=== PATIENT | female | born 1950 | race Caucasian/White ===

== ENCOUNTER → 2023-12-11 10:00 | Outpatient (REF) | payer MEDICARE, BC, SELFPAY ==
[2023-12-11 12:03] LABS: ALT (SGPT) 28 U/L (0-35); AST (SGOT) 20 U/L (14-36); Albumin 3.7 g/dl (3.5-5.0); Alkaline Phosphatase 67 U/L (38-126); Blood Urea Nitrogen 15 mg/dl (7-17); Calcium 8.9 mg/dl (8.4-10.2); Carbon Dioxide 25 mmol/L (22-30); Chloride 104 mmol/L (98-107); Glucose 194 mg/dl (70-99); Sodium 140 mmol/L (135-145); Total Bilirubin 0.6 mg/dl (0.2-1.3); Total Protein 6.1 g/dl (6.3-8.2); eGFR > 60.00
[2023-12-11 15:35] LABS: Glycohemoglobin (HgbA1c) 6.9 % (4.0-5.6)
== END ==
LOC: RAD 10:00
PROVIDERS: Family Medicine; ATTENDING PHYSICIAN Surgery Vascular Surgery
DX: I70.0 Atherosclerosis of aorta (principal); K55.1 Chronic vascular disorders of intestine; R73.09 Other abnormal glucose
CPT/HCPCS: 36415; 71046; 72110; 73030; 73564; 74176; 80053; 83036

== ENCOUNTER 2024-04-01 10:49 | Emergency (ER) | payer MEDICARE, BC, SELFPAY ==
[2024-04-01 10:52] VITALS: BP 162/90
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
[2024-04-01 13:02] LABS: Urine Albumin Negative (Neg - Trace); Urine Bilirubin Negative (Negative); Urine Character Clear (Clear); Urine Color Yellow; Urine Glucose Negative (Negative); Urine Ketone Negative (Negative); Urine Leukocyte Trace (Negative); Urine Nitrite Negative (Negative); Urine Occult Blood Negative (Negative); Urine Urobilinogen Negative (Neg - 1+)
[2024-04-01 13:37] LABS: Urine Red Blood Cell 0-2 /HPF (0-2); Urine White Cell 0-2 /HPF (0-5)
[2024-04-01 13:50] VITALS: BP 159/87
[2024-04-01 14:16] VITALS: BMI 24.9
[2024-04-01 14:24] LABS: % Basophils 0.3 % (0-2); % Eosinophils 0.6 % (0-6); % Immature Granulocytes 0.7 % (0-0.5); % Lymphocytes 17.7 % (20.5-51.1); % Monocytes 8.4 % (1.7-9.3); % Neutrophils 72.3 % (42.2-75.2); Absolute Eosinophils 0.1 10^3/uL (0-0.7); Absolute Immature Granulocytes 0.1 10^3/uL (0-0.05); Absolute Lymphocytes 1.6 10^3/uL (1.2-3.4); Absolute Monocytes 0.8 10^3/uL (0.1-0.6); Absolute Neutrophils 6.5 10^3/uL (1.4-6.5); Hematocrit 37.5 % (37.0-47.0); Hemoglobin 12.4 g/dL (12.0-16.0); Mean Corp Hgb Conc. 33.1 g/dL (33.0-37.0); Mean Corpuscular Hgb 28.4 pg (27.0-31.0); Mean Platelet Volume 11.1 fL (7.4-10.4); Nucleated Red Blood Cells % 0 %; Platelet Count 163 10^3/uL (130-400); Red Blood Cell Count 4.36 10^6/uL (4.20-5.40)
[2024-04-01 14:36] LABS: ALT (SGPT) 28 U/L (0-35); AST (SGOT) 24 U/L (14-36); Albumin 3.9 g/dl (3.5-5.0); Alkaline Phosphatase 54 U/L (38-126); Blood Urea Nitrogen 20 mg/dl (7-17); Calcium 8.8 mg/dl (8.4-10.2); Carbon Dioxide 29 mmol/L (22-30); Chloride 106 mmol/L (98-107); Estimated Creatinine Clearance 70 ml/min; Glucose 114 mg/dl (70-99); Lipase 106 U/L (23-300); Potassium 3.4 mmol/L (3.5-5.1); Sodium 141 mmol/L (135-145); Total Bilirubin 0.5 mg/dl (0.2-1.3); Total Protein 6.4 g/dl (6.3-8.2); eGFR > 60.00
[2024-04-01 14:50] LABS: Troponin I < 0.012 ng/ml
== END 2024-04-01 15:19 | disposition home or self-care (01) ==
LOC: EMR 10:49
PROVIDERS: Physician Assistant; EMERGENCY PHYSICIAN Emergency Medicine
DX: R07.89 Other chest pain (principal); S20.212A Contusion of left front wall of thorax, initial encounter; W22.09XA Striking against other stationary object, initial encounter; Y92.481 Parking lot as the place of occurrence of the external cause; Z23 Encounter for immunization; I48.91 Unspecified atrial fibrillation; K21.9 Gastro-esophageal reflux disease without esophagitis; E78.00 Pure hypercholesterolemia, unspecified; E03.9 Hypothyroidism, unspecified; M19.90 Unspecified osteoarthritis, unspecified site; Z79.01 Long term (current) use of anticoagulants; Z87.440 Personal history of urinary (tract) infections; Z87.891 Personal history of nicotine dependence; Z90.49 Acquired absence of other specified parts of digestive tract; Z90.710 Acquired absence of both cervix and uterus
CPT/HCPCS: 99284; 90471; 71250; 80053; 81003; 81015; 83690; 84484; 85025; 90715; 93005

== ENCOUNTER → 2024-06-17 16:33 | Outpatient (REF) | payer MEDICARE, BC, SELFPAY ==
[2024-06-17 18:45] LABS: TSH Reflex To Free T4 2.38 uIU/ml (0.47-4.68)
[2024-06-19 18:22] LABS: Thyroid Peroxidase Ab (TPO) 4.2 IU/mL (0.0-9.0)
== END ==
LOC: REG 16:33
PROVIDERS: ATTENDING PHYSICIAN Internal Medicine Endocrinology, Diabetes & Metabolism
DX: E03.9 Hypothyroidism, unspecified (principal)
CPT/HCPCS: 36415; 84443; 86376

== ENCOUNTER 2024-07-29 12:06 | Emergency (ER) | payer MEDICARE, BC, SELFPAY ==
[2024-07-29] VITALS (7 sets, daily range): BP systolic 151–183; BP diastolic 64–92
--- NOTE | 2024-07-29 12:16 | ED.PDOC.TRB ---
ED Provider Triage
-
Patient seen by provider in Triage?: Seen in Triage
Attestation: A medical screening examination has been initiated by a qualified medical provider. Based on the assessment performed at this time, it has been determined that an emergent medical condition may exist and the patient has been informed
that further medical evaluation and possible additional diagnostic testing may be needed.
HPI: 74-year-old female presents to the emergency department for evaluation of severe abdominal pain associated with nausea, vomiting, and diarrhea. Pain is been ongoing for the past 3 days but over the past 24 hours she feels as though her
'stomach might burst'. She also notes stool coming from her vagina, notes a prior history of a diagnosed 'fistula' but she cannot provide any further details, she had stool, improved from her vagina once in the past year but this was never further
worked up or evaluated by a surgeon. Febrile in triage
GENERAL: Appears ill
EYE: No visual abnormalities.
NECK: Trachea midline
ENT: No visible abnormalities.
LUNGS: No acute respiratory distress
Abdomen: Distended and peritoneal, diffusely tender
NEUROLOGICAL: Alert and oriented
SKIN: Skin intact. No visible changes.
MUSCULOSKELETAL: Moving extremities normally
PSYCH: Normal and appropriate interaction.
Patient appears well and has a peritoneal abdominal exam. Will obtain sepsis labs due to fever and CT of abdomen pelvis. The patient has extensive allergy list thus will perform initial CT with no contrast
This is a medical evaluation conducted in person to initiate diagnostic evaluation and provide initial therapeutics. Please see further documentation by the treating clinician.
[2024-07-29 12:58] LABS: % Basophils 0.6 % (0-2); % Eosinophils 2.9 % (0-6); % Immature Granulocytes 0.8 % (0-0.5); % Lymphocytes 18.2 % (20.5-51.1); % Monocytes 10.9 % (1.7-9.3); % Neutrophils 66.6 % (42.2-75.2); Absolute Eosinophils 0.1 10^3/uL (0-0.7); Absolute Lymphocytes 0.9 10^3/uL (1.2-3.4); Absolute Monocytes 0.5 10^3/uL (0.1-0.6); Absolute Neutrophils 3.2 10^3/uL (1.4-6.5); Hematocrit 40.2 % (37.0-47.0); Hemoglobin 13.2 g/dL (12.0-16.0); Mean Corp Hgb Conc. 32.8 g/dL (33.0-37.0); Mean Corpuscular Hgb 28.8 pg (27.0-31.0); Mean Corpuscular Volume 87.8 fL (81.0-99.0); Mean Platelet Volume 11.2 fL (7.4-10.4); Nucleated Red Blood Cells % 0 %; Platelet Count 148 10^3/uL (130-400); Red Blood Cell Count 4.58 10^6/uL (4.20-5.40); White Blood Cell Count 4.8 10^3/uL (4.8-10.8)
[2024-07-29 13:14] LABS: ALT (SGPT) 29 U/L (0-35); AST (SGOT) 24 U/L (14-36); Alkaline Phosphatase 71 U/L (38-126); Blood Urea Nitrogen 19 mg/dl (7-17); Calcium 8.7 mg/dl (8.4-10.2); Carbon Dioxide 27 mmol/L (22-30); Chloride 102 mmol/L (98-107); Glucose 77 mg/dl (70-99); Lipase 108 U/L (23-300); Potassium 3.3 mmol/L (3.5-5.1); Sodium 139 mmol/L (135-145); Total Bilirubin 0.9 mg/dl (0.2-1.3); Total Protein 6.3 g/dl (6.3-8.2); eGFR > 60.00
[2024-07-29] MEDS: SOLU-CORTEF 200 MG IV (13:25)
[2024-07-29] MEDS: BENADRYL 50 MG IV (13:25)
[2024-07-29 13:45] LABS: COVID-19 Antigen Negative (Negative)
[2024-07-29 13:50] LABS: Urine Albumin Negative (Neg - Trace); Urine Bilirubin Negative (Negative); Urine Character Clear (Clear); Urine Color Yellow; Urine Glucose Negative (Negative); Urine Ketone Negative (Negative); Urine Leukocyte Negative (Negative); Urine Nitrite Negative (Negative); Urine Occult Blood Negative (Negative); Urine Urobilinogen Negative (Neg - 1+); Urine pH 6.5 (5.0-9.0)
[2024-07-29 14:12] LABS: Troponin I < 0.012 ng/ml
--- NOTE | 2024-07-29 15:58 | ED.GENMED ---
History of Present Illness
<CHRISTINA Vela Last Filed: 07/29/24 16:44>
General
Chief Complaint: Abdominal Pain
Source: patient
Exam Limitations: none
Time Seen by Provider: 07/29/24 12:18
Nursing documentation reviewed up to this point in time: agreed with
History of Present Illness
History of Present Illness:
74 y/o F with h/o infrarenal abdomian aortic anerysm, pelvic fistula, had a cardiac arrest in the past
here with c/o generalized abdominal pain and back pain all over the past 3 days
she believes it was after preparing bad burger meat
she ssays she saw the fungus coming out of the meat while cooking i but ate it anyway and after hennessy felt ill
she has pain 'all over' in abdomen, back, chest
she has not had any fever, chills, cough, cold symptoms, vomiting, diarrhea, black stool, sob
she sat in a hot tub for a fe whours each day the past few days to 'draw the water out of me.'
no one else who ate the meat got sick
Past History
<CHRISTINA Vela Last Filed: 07/29/24 16:44>
Past History
ED Past Medical History: GERD, Hypercholesterolemia, Hypothyroidism, Psychiatric (Anxiety) and Other (Arthritis, UTI)
ED Past Surgical History: Appendectomy and Gynecological (Hysterectomy, bladder suspension)
Social History
Tobacco: Former smoker
Alcohol: None
Drug: None
Personal:
Living: with family
Review of Systems
<CHRISTINA Vela Last Filed: 07/29/24 16:44>
Review of Systems
Allergies reviewed?: Yes
All Other Systems: Not applicable
Phy Exam
<CHRISTINA Vela Last Filed: 07/29/24 16:44>
Physical Exam
Physical Exam:
GENERAL: Alert , in no apparent distress
EYE: pupils equal and reactive
NECK: Supple
ENT: o/p clr, mmm.
CARDIAC: Regular rate and rhythm .
LUNGS: Clear breath sounds bilaterally, no acute respiratory distress, no wheezes/rales/rhonchi
ABDOMEN: Soft, generalied abdominal tenderness, no r/g, no cvat, normal bowel sounds
NEUROLOGICAL: Alert and oriented, no focal neuro deficits
SKIN: Warm and dry, skin intact.
MUSCULOSKELETAL: No edema, well perfused. neg jorge's sign
PSYCH: Normal and appropriate interaction.
Course
<Ashlie Cheney PA-C - Last Filed: 07/29/24 16:44>
Orders/Labs/Results
Orders:
Orders
07/29/24 12:30
Complete Blood Count/With Diff Urgent
Comprehensive Metabolic Panel Urgent
Lactic Acid Urgent
Lipase Urgent
Magnesium Urgent
Blood Culture Routine
ABEL Source: Blood/Venous
Specimen Description:
Blood Culture Urgent
ABEL Source: Blood/Venous
Specimen Description:
07/29/24 12:54
CT Abd/Pel (IV only)-DH only Urgent
Comment:
Reason For Exam: abd pain, back pain ,h/o aneurysm
Straight cath- Treatment ONCE
07/29/24 12:55
Diphenhydramine [Benadryl] 50 mg IV NOW STA
Hydrocortisone Sod Succinate [Solu-Cortef] 200 mg IV NOW STA
07/29/24 12:56
Electrocardiogram (*1) Urgent
Reason for Study: Chest Pain
EKG- Treatment ONCE
07/29/24 13:21
COVID-19 Antigen Urgent
Source: Nasal Swab
Troponin I Urgent
Urinalysis Reflex To Culture Urgent
Date Specimen was Collected: 07/29/24
Time Specimen was Collected: 13:16
07/29/24 15:12
CR Chest - 2 Views Urgent
Comment:
Reason For Exam: chest pain
07/29/24 16:16
0.9% Sodium Chloride 500 ml [Nss] 500 ml IV BOLUS
Acetaminophen [Tylenol] 650 mg PO NOW STA
07/29/24 16:59
Influenza A+B Rapid Molecular Routine
ABEL Source: Nasal Swab
Specimen Description:
07/29/24 17:33
Potassium Chloride [KCl] 40 meq 0.9% Sodium Chloride 250 ml [Nss] 250 ml IV NOW
PRN Pain Medication Management As Directed
May give lesser potent ordered pain med per pt: Yes
preference::
Protocol:: Medication orders for pain may be administered in a
manner that supports deferring to patient preference
when the pt is:
- Requesting an ordered lesser potent pain medication.
Least to most potent pain medications are defined
as: acetaminophen < NSAID < tramadol < opioids
(morphine, oxycodone, hydromorphone).
- Requesting a lesser dose of the same medication IF
ORDERED.
- Requesting a less intrusive route of administration
if both routes are prescribed by the provider (PO <
IV).
07/29/24 17:34
Code Status As Directed
Resuscitation Status: Full Code
07/29/24 17:41
Add On- LAB Routine
Tests Added?: magnesium
Abnormal Lab Results
07/29/24
12:30
MCHC 32.8 L g/dL
(33.0-37.0)
MPV 11.2 H fL
(7.4-10.4)
Absolute Lymphs (auto) 0.9 L 10^3/uL
(1.2-3.4)
Immature Gran % 0.8 H %
(0-0.5)
Lymphocytes % 18.2 L %
(20.5-51.1)
Monocytes % 10.9 H %
(1.7-9.3)
Potassium 3.3 L mmol/L
(3.5-5.1)
BUN 19 H mg/dl
(7-17)
07/29/24 12:30
07/29/24 12:30
Vital Signs
Initial and Last Documented VS:
Initial Vital Signs
Temp Pulse Resp BP Pulse Ox
100.1 F 85 18 183/92 98
07/29/24 12:11 07/29/24 12:11 07/29/24 12:11 07/29/24 12:11 07/29/24 12:11
Last Documented Vital Signs
Temp Pulse Resp BP Pulse Ox
100.9 F H 82 15 173/85 95
07/29/24 16:10 07/29/24 16:03 07/29/24 16:03 07/29/24 16:03 07/29/24 16:03
Cinthialt;Shahbaz Riojas, - Last Filed: 07/29/24 19:17>
Orders/Labs/Results
Orders:
Orders
07/29/24 12:30
Complete Blood Count/With Diff Urgent
Comprehensive Metabolic Panel Urgent
Lactic Acid Urgent
Lipase Urgent
Magnesium Urgent
Blood Culture Routine
ABEL Source: Blood/Venous
Specimen Description:
Blood Culture Urgent
ABEL Source: Blood/Venous
Specimen Description:
07/29/24 12:54
CT Abd/Pel (IV only)-DH only Urgent
Comment:
Reason For Exam: abd pain, back pain ,h/o aneurysm
Straight cath- Treatment ONCE
07/29/24 12:55
Diphenhydramine [Benadryl] 50 mg IV NOW STA
Hydrocortisone Sod Succinate [Solu-Cortef] 200 mg IV NOW STA
07/29/24 12:56
Electrocardiogram (*1) Urgent
Reason for Study: Chest Pain
EKG- Treatment ONCE
07/29/24 13:21
COVID-19 Antigen Urgent
Source: Nasal Swab
Troponin I Urgent
Urinalysis Reflex To Culture Urgent
Date Specimen was Collected: 07/29/24
Time Specimen was Collected: 13:16
07/29/24 15:12
CR Chest - 2 Views Urgent
Comment:
Reason For Exam: chest pain
07/29/24 16:16
0.9% Sodium Chloride 500 ml [Nss] 500 ml IV BOLUS
Acetaminophen [Tylenol] 650 mg PO NOW STA
07/29/24 16:59
Influenza A+B Rapid Molecular Routine
ABEL Source: Nasal Swab
Specimen Description:
07/29/24 17:33
Potassium Chloride [KCl] 40 meq 0.9% Sodium Chloride 250 ml [Nss] 250 ml IV NOW
PRN Pain Medication Management As Directed
May give lesser potent ordered pain med per pt: Yes
preference::
Protocol:: Medication orders for pain may be administered in a
manner that supports deferring to patient preference
when the pt is:
- Requesting an ordered lesser potent pain medication.
Least to most potent pain medications are defined
as: acetaminophen < NSAID < tramadol < opioids
(morphine, oxycodone, hydromorphone).
- Requesting a lesser dose of the same medication IF
ORDERED.
- Requesting a less intrusive route of administration
if both routes are prescribed by the provider (PO <
IV).
07/29/24 17:34
Code Status As Directed
Resuscitation Status: Full Code
07/29/24 17:41
Add On- LAB Routine
Tests Added?: magnesium
Abnormal Lab Results
07/29/24
12:30
MCHC 32.8 L g/dL
(33.0-37.0)
MPV 11.2 H fL
(7.4-10.4)
Absolute Lymphs (auto) 0.9 L 10^3/uL
(1.2-3.4)
Immature Gran % 0.8 H %
(0-0.5)
Lymphocytes % 18.2 L %
(20.5-51.1)
Monocytes % 10.9 H %
(1.7-9.3)
Potassium 3.3 L mmol/L
(3.5-5.1)
BUN 19 H mg/dl
(7-17)
07/29/24 12:30
07/29/24 12:30
Vital Signs
Initial and Last Documented VS:
Initial Vital Signs
Temp Pulse Resp BP Pulse Ox
100.1 F 85 18 183/92 98
07/29/24 12:11 07/29/24 12:11 07/29/24 12:11 07/29/24 12:11 07/29/24 12:11
Last Documented Vital Signs
Temp Pulse Resp BP Pulse Ox
100.9 F H 82 15 173/85 95
07/29/24 16:10 07/29/24 16:03 07/29/24 16:03 07/29/24 16:03 07/29/24 16:03
Cinthialt;Ashlie Cheney PA-C - Last Filed: 07/29/24 16:44>
MDM/Problems Addressed
Differential Diagnosis Includes:
gastroenteritis, gastritis, diverticulitis, UTI, acs
MDM/Problems Addressed:
74 y/o F
report a lot of previous medical problems
here with generalized abd and back pain and feeling not well after eating burger she prepared
she has not had fever, vomiting, diarrhea
she has not had known fever, cough, urinary symptoms
on exam she is nontocxic but feels warm
borderline temp initially
ua neg
wbc normal
covid neg
cxr indep reviewed, no pna
ct a/p - infrarenal aneurysm slightly larter 2.7 but no other acute findings
pt reassessed and appears generally weak
temp now 100.9
tylenol, lfuids
pt does not feel well enough to go home
will dmit
she does have issue with her family members who are not well, dementia, etc
and she cannot leave them alone
will consult case management
<Ashlie Cheney PA-C - Last Filed: 07/29/24 16:44>
*Critical Care Note
Total Time (30-74mins, 75-104mins- exclusive of procedures): Not Applicable
ED Attending Note
<Ashlie Cheney PA-C - Last Filed: 07/29/24 16:44>
-
Portions of this chart may have been created with voice recognition software.� Occasional wrong word or��sound alike� substitutions may have occurred due to the inherent limitations of voice recognition software.
<Shahbaz Riojas DO - Last Filed: 07/29/24 19:17>
ED Attending Note
Patient seen and examined by attending physician: Yes
ED Attending Note:
I have reviewed Kisha's note.
Patient with complaints of generalized pain including back, abdomen, chest. Noted to have a low-grade fever of 100.9 during her.
Workup shows no source of fever. COVID is negative. Flu is negative. Chest x-ray and CT abdomen pelvis is unremarkable. Given no source of fever was identified Yandel was concerned and thought the patient should be hospitalized.
General: Awake, Alert, Oriented X3. No acute distress.
Vitals: unremarkable
Head: Atraumatic
Eyes: Pupils equal, EOMI
Throat: Airway intact, no exudates
Neck: Trachea midline
Lungs: Clear and equal b/l
Heart: Regular rate, no murmurs
Abd: Soft, no significant tenderness,, No pulsatile mass
Neuro: Nonfocal
Skin: Warm, dry, no rash
Extremities: pulses equal b/l, no edema
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 She does not have any family, friends to care for her dependence. Case management involved. Case management informed the patient that her and son can
stay in the hospital but it would be at a cost. The details of the close were described to the patient. Patient feels that these cost are due much for her to bear. She will not stay in the hospital if she has to pay. Currently patient is
hemodynamically stable. She is conversant with me and in no distress. Explained to the patient that we are very happy to keep her and monitor her for any signs of serious infection. However I am unable to change the hospitals financial policies.
The decision is up to her as to whether she stays and pays the fee or goes home. Patient chooses to go home. Patient was ambulated prior to discharge and she was able to ambulate without difficulty.
Discharge Plan
Departure
Patient Disposition: Home (Routine Discharge)
Date of Disposition: 07/29/24
Time of Disposition: 19:11
Patient with high blood pressure during this ER visit?: No
Condition: Good
Discharge Problem:
Fever, Abdominal pain, Herpes zoster
Interventions
Interventions:
*Risk Screen - Suicide Last Done: 07/29/24 12:20
*General Assessment Last Done: 07/29/24 12:20
*Neglect/Abuse Screening Last Done: 07/29/24 12:20
*ED COVID-19 Vaccine History Last Done: 07/29/24 12:15
SG-Ympvuw-Ikudmxbwpk Assessment Last Done: 07/29/24 12:20
--- NOTE | 2024-07-29 16:53 | CM ---
Addendum entered by Vidya German RN 07/29/24 18:17:
Patient has been accepted by [facility].
Addendum entered by Vidya German RN 07/29/24 18:02:
CM discussed options with Sherlyn Buck and Theresa Marco Antonio. CM advised patient that her and son can be a detention admission; however, she would be responsible for a detention rate and ancillaries. CM was in the room while hospitalist
offered patient home discharge with home care. Patient was tangential and would not decide on a plan moving forward. Patient attempted to call a 'friend' but was unable to reach them.
Dr. Riojas had an extended conversation with patient. Patient is agreeable to home discharge with home care. Referral sent to [facility].
Original Note:
CM was consulted because patient's son and are in room. Patient is their only caregiver. Patient stated that she has no other options to help with supervision. Patient is requesting that patient's family stay in room with her. CM requested
permission for family to stay in room with nursing forestry supervisor. Nursing forestry supervisor stated that and son cannot stay in room with patient.
CM called [facility]. CM spoke with Anitra . Family is not active with [facility]. Anitra recommended that patient's and son be admitted for social reasons due to lack of caregiver availability.
[2024-07-29] MEDS: NSS 500 IV (16:54)
--- NOTE | 2024-07-29 17:36 | HPS.HSE ---
Family Physician
-
Family Physician: Thea Hong MD
Chief Complaint
-
Abdominal pain, back pain
History of Present Illness
74-year-old female states came in today for evaluation of abdominal pain and back pain that started Sunday evening after she ate a home-cooked burger.
She noted that as she was cooking the burger there were black things coming out of the meat. She thought they look like fungus. She ate it anyway and that started having abdominal discomfort and weakness. No one else in the family who ate the
burgers felt ill.
Denies any nausea vomiting or diarrhea. Has had anorexia and generalized weakness since. Had a normal bowel movement this morning.
Medical History
Past Medical History
Past Medical History: Reports Other
Additional Past Medical History:
GERD
Hyperlipidemia
Hypothyroidism
Anxiety disorder
DM2
Atrial fibrillation
Past Surgical History: Reports Appendectomy and Gynocological
Social History
Tobacco: Former Smoker
Alcohol: None
Drug: None
Personal:
Living: With Family
Family History
Family History: Not pertinent
Allergies / Home Medications
Allergies reflects when Allergies were last updated in [facility].
Home Medications with original date entered in [facility]
Allergy/Medication List:
Allergies
Allergy/AdvReac Type Severity Reaction Status Date / Time
acetaminophen Allergy Unknown Verified 07/29/24 12:14
adhesive tape [Adhesive Tape] Allergy REDNESS Verified 07/29/24 12:14
alprazolam Allergy Unknown Verified 07/29/24 12:14
codeine Allergy Headache Verified 07/29/24 12:14
cyanocobalamin Allergy LEFT SIDED Verified 07/29/24 12:14
[From Vitamin B-12] NUMBNESS
etodolac [From Lodine] Allergy Hives Verified 07/29/24 12:14
ezetimibe Allergy Unknown Verified 07/29/24 12:14
gadobutrol [From Gadavist] Allergy Hives Verified 07/29/24 12:14
ibuprofen [Ibuprofen] Allergy STOMACH Verified 07/29/24 12:14
PAINS
Iodinated Contrast Media Allergy Hives Verified 07/29/24 12:14
[Iodinated Contrast Media -
IV Dye]
iodine Allergy Hives/(CONTRAST Verified 07/29/24 12:14
DYE
ALLERGY)
iodoform Allergy Unknown Verified 07/29/24 12:14
ioversol Allergy Unknown Verified 07/29/24 12:14
metoclopramide Allergy Unknown Verified 07/29/24 12:14
nabumetone Allergy TREMORS Verified 07/29/24 12:14
NSAIDS (Non-Steroidal Allergy Unknown Verified 07/29/24 12:14
Anti-Inflamma
oxycodone Allergy Unknown Verified 07/29/24 12:14
pentoxifylline Allergy Unknown Verified 07/29/24 12:14
potassium iodide Allergy Unknown Verified 07/29/24 12:14
propoxyphene Allergy Unknown Verified 07/29/24 12:14
simvastatin Allergy Unknown Verified 07/29/24 12:14
Sulfa (Sulfonamide Allergy Unknown Verified 07/29/24 12:14
Antibiotics)
cobamamide Allergy Unknown Uncoded 07/29/24 12:14
novacaine Allergy Unknown Uncoded 07/29/24 12:14
Home Medications
lorazepam 0.5 mg tablet 0.5 mg PO Q8HPRN PRN anxiety 09/05/09
albuterol sulfate 90 mcg/actuation aerosol inhaler (ProAir HFA) 2 puff inhalation Q4HPRN PRN shortness of breath #8.5 grams 04/09/23
apixaban 5 mg tablet (Eliquis) 5 mg PO BID #60 tabs 04/14/23
diltiazem HCl 120 mg capsule,extended release 12 hr 120 mg PO DAILY #30 caps 04/14/23
Review of Systems
-
History Source: Patient
A 12 point ROS was completed and negative except as noted: Yes
Physical Exam
Vital Signs
Vital Signs
Temp Pulse Resp BP Pulse Ox
100.9 F H 82 15 173/85 95
07/29/24 16:10 07/29/24 16:03 07/29/24 16:03 07/29/24 16:03 07/29/24 16:03
Physical Exam
General: Well Developed, Well Nourished, No Apparent Distress and Comfortable
HEENT: NormoCephalic, Anicteric and Moist mucous membranes
Respiratory: Clear
Cardiac: S1/S2 and Regular Rhythm
Breast: Deferred by me
GI: Soft, Non Distended and Tender (Mild diffuse tenderness without rebound or guarding)
Genito-urinary: Deferred by me
Musculoskeletal: No Clubbing, No Cyanosis and No Edema
Skin: Warm and Dry
Neuro: AO x 3
Hematologic/Lymphatic: No Lymphadenopathy
Psych: Calm
Laboratory Results
-
07/29/24 12:30
07/29/24 12:30
Laboratory Results
Lactic Acid 1.0 mmol/L (0.7-2.0) 07/29/24 12:30
Total Bilirubin 0.9 mg/dl (0.2-1.3) 07/29/24 12:30
AST 24 U/L (14-36) 07/29/24 12:30
ALT 29 U/L (0-35) 07/29/24 12:30
Alkaline Phosphatase 71 U/L (38-126) 07/29/24 12:30
Troponin I < 0.012 ng/ml 07/29/24 13:21
Lipase 108 U/L (23-300) 07/29/24 12:30
Impression/Plan
-
Febrile illness -with nonspecific symptoms of abdominal discomfort, back pain. Nontoxic in appearance. No signs or symptoms of sepsis. COVID antigen negative. States she has had a sore throat for several months.
Patient states symptoms started after eating home cooked burger on Sunday. CT of the abdomen pelvis unremarkable. Admit for observation. IV fluid administration. PT/OT consult.
Check for influenza.
Hypokalemia -replete intravenously. Check magnesium.
Paroxysmal atrial fibrillation -continue Eliquis, diltiazem.
DM2 without hyperglycemia -does not appear to be on medications at home. Last hemoglobin A1c in our system was from November, 6.9%. Monitor for now.
GERD
Hyperlipidemia
Hypothyroidism
Anxiety disorder
Full code
Please update home medication list.
Patient lives at home with her with dementia, son has developmental delay. She is the primary care provider for both family members.
--- NOTE | 2024-07-30 14:41 | CM ---
office notified by [facility] patient told [facility] not to come. CM called and left explaining role of having social security benefits interviewer from [facility] to assist patient in finding support for her and son so she can get her medical needs met. Left [facility]
phone for her to call but encouraged her to call [facility] and ask them to come to meet with her.
== END 2024-07-29 19:55 | disposition home or self-care (01) ==
LOC: EMR 12:06
PROVIDERS: Physician Assistant; EMERGENCY PHYSICIAN Emergency Medicine; FAMILY PHYSICIAN Internal Medicine; OTHER PHYSICIAN Hospitalist
DX: R50.9 Fever, unspecified (principal); R10.84 Generalized abdominal pain; B02.9 Zoster without complications; R53.1 Weakness; M54.9 Dorsalgia, unspecified; J02.9 Acute pharyngitis, unspecified; R63.0 Anorexia; E87.6 Hypokalemia; Z11.52 Encounter for screening for COVID-19; I71.43 Infrarenal abdominal aortic aneurysm, without rupture; I48.0 Paroxysmal atrial fibrillation; E03.9 Hypothyroidism, unspecified; E78.00 Pure hypercholesterolemia, unspecified; F41.9 Anxiety disorder, unspecified; E11.9 Type 2 diabetes mellitus without complications; M19.90 Unspecified osteoarthritis, unspecified site; K21.9 Gastro-esophageal reflux disease without esophagitis; Z79.01 Long term (current) use of anticoagulants; Z86.74 Personal history of sudden cardiac arrest; Z87.891 Personal history of nicotine dependence; Z87.440 Personal history of urinary (tract) infections; Z88.1 Allergy status to other antibiotic agents; Z88.2 Allergy status to sulfonamides; Z88.5 Allergy status to narcotic agent; Z88.6 Allergy status to analgesic agent; Z88.8 Allergy status to other drugs, medicaments and biological substances; Z91.041 Radiographic dye allergy status
CPT/HCPCS: 99285; 96375; 96361; 96374; 71046; 74177; 80053; 81003; 83605; 83690; 83735; 84484; 85025; 87040; 87811; 93005; Q9967

== ENCOUNTER 2024-08-01 21:22 | Emergency (ER) | payer MEDICARE, BC, SELFPAY ==
[2024-08-01 21:25] VITALS: BP 138/85
[2024-08-01 21:55] LABS: % Basophils 1.5 % (0-2); % Eosinophils 0.7 % (0-6); % Immature Granulocytes 1.1 % (0-0.5); % Lymphocytes 8.6 % (20.5-51.1); % Monocytes 5.7 % (1.7-9.3); % Neutrophils 82.4 % (42.2-75.2); Absolute Basophils 0.1 10^3/uL (0-0.2); Absolute Eosinophils 0.1 10^3/uL (0-0.7); Absolute Immature Granulocytes 0.1 10^3/uL (0-0.05); Absolute Lymphocytes 0.7 10^3/uL (1.2-3.4); Absolute Monocytes 0.5 10^3/uL (0.1-0.6); Hematocrit 41.3 % (37.0-47.0); Hemoglobin 14.5 g/dL (12.0-16.0); Mean Corp Hgb Conc. 35.1 g/dL (33.0-37.0); Mean Corpuscular Hgb 28.2 pg (27.0-31.0); Mean Corpuscular Volume 80.4 fL (81.0-99.0); Mean Platelet Volume 10.7 fL (7.4-10.4); Nucleated Red Blood Cells % 0 %; Platelet Count 158 10^3/uL (130-400); Red Blood Cell Count 5.14 10^6/uL (4.20-5.40); Red Cell Dist. Width 14.3 % (11.5-14.5); White Blood Cell Count 8.5 10^3/uL (4.8-10.8)
[2024-08-01 22:14] LABS: ALT (SGPT) 26 U/L (0-35); AST (SGOT) 32 U/L (14-36); Albumin 4.3 g/dl (3.5-5.0); Alkaline Phosphatase 64 U/L (38-126); Blood Urea Nitrogen 15 mg/dl (7-17); Calcium 8.7 mg/dl (8.4-10.2); Carbon Dioxide 23 mmol/L (22-30); Chloride 97 mmol/L (98-107); Glucose 161 mg/dl (70-99); Sodium 132 mmol/L (135-145); Total Bilirubin 1.6 mg/dl (0.2-1.3); Total Protein 6.7 g/dl (6.3-8.2); eGFR > 60.00
[2024-08-01 22:21] LABS: Troponin I < 0.012 ng/ml
[2024-08-01 23:52] VITALS: BP 137/62
[2024-08-01 23:53] VITALS: BMI 23.7
[2024-08-02] VITALS: BP 119/84
--- NOTE | 2024-08-02 | ED.GENMED ---
History of Present Illness
<KIM Chavira - Last Filed: 08/02/24 07:17>
General
Chief Complaint: Blood Pressure Problem
Time Seen by Provider: 08/02/24 00:00
History of Present Illness
History of Present Illness:
Patient is a 74 year old female with a PMH of a fistula between the intestine and bladder presents to the ED with complaints of a UTI x 2 days. She states she was here 2 days ago for a UTI and they discharged her without any medication. Patient has
a fistula and claims she gets UTIs frequently, which she said they usually give her Cefdinir and it works. Patient is currently having dysuria and burning that was rated a 10/10 on a pain scale. She does not recall any blood in urine but said she
never looked. She is also having increased frequency and urgency. Also admits to associated headache, light headedness, fatigue, weakness, and abdominal pain. She states she never had these with past UTIs. The abdominal pain is generalized and
severe. The pain is the worst in her bellybutton, where she claims she has a hernia. Patient denies any vomiting chest pain sob.
Patient has a PMH of a fistula which she claims causes her to have UTIs frequently. She also has a hysterectomy and bladder suspension.
Past History
<KIM Chavira - Last Filed: 08/02/24 07:17>
Past History
ED Past Medical History: GERD, Hypercholesterolemia, Hypothyroidism, Psychiatric (Anxiety) and Other (Arthritis, UTI)
ED Past Surgical History: Appendectomy and Gynecological (Hysterectomy, bladder suspension)
Social History
Tobacco: Former smoker
Alcohol: None
Drug: None
Personal:
Living: with family
Review of Systems
<KIM Chavira - Last Filed: 08/02/24 07:17>
Review of Systems
Constitutional: Reports fever and fatigue
Respiratory: Reports no symptoms
Cardiac: Reports no symptoms
ABD/GI: Reports abdominal pain
: Reports dysuria, frequency, flank pain, incontinence, difficulty voiding and urgency
Musculoskeletal: Reports no symptoms
Skin: Reports rash
Neurological: Reports dizzy, headache and weakness
Phy Exam
<Len Zeny, STHI - Last Filed: 08/02/24 07:17>
Physical Exam
Physical Exam:
see physical
Cardiovascular Exam
Cardiovascular Exam: regular rate/rhythm, no edema, no gallop, no JVD and no murmur
Pulmonary Exam
Pulmonary Exam: lungs clear, no respiratory distress, no rales, chest non tender, no crackles, no rhonchi, no stridor, no wheezing and no cough
Gastrointestinal Exam
Gastrointestinal Exam: normal bowel sounds, no organomegaly, no pulsatile mass, non distended and tender (patient refused palpation because of how severe pain was )
Skin Exam
Skin Exam: redness (dermatomal rash across left flank with some crusted lesions )
Course
<Len Moura [facility] - Last Filed: 08/02/24 07:17>
Orders/Labs/Results
Orders:
Orders
08/01/24 21:28
Electrocardiogram (*1) Urgent
Reason for Study: Hypertension, Benign
CT Head W/o Iv Contrast Urgent
Comment:
Reason For Exam: headche, high blood pressure
Urinalysis Reflex To Culture Urgent
Date Specimen was Collected: 08/01/24
Time Specimen was Collected: 21:29
08/01/24 21:29
EKG- Treatment ONCE
08/01/24 21:45
Complete Blood Count/With Diff Urgent
Comprehensive Metabolic Panel Urgent
Troponin I Urgent
08/02/24 00:47
Valacyclovir HCl [Valtrex] 1,000 mg PO NOW STA
08/02/24 01:13
Acetaminophen [Tylenol] 1,000 mg PO NOW STA
Abnormal Lab Results
08/01/24 08/02/24
21:45 01:52
MCV 80.4 L fL
(81.0-99.0)
MPV 10.7 H fL
(7.4-10.4)
Abs Immat Gran (auto) 0.1 H 10^3/uL
(0-0.05)
Absolute Neuts (auto) 7.0 H 10^3/uL
(1.4-6.5)
Absolute Lymphs (auto) 0.7 L 10^3/uL
(1.2-3.4)
Immature Gran % 1.1 H %
(0-0.5)
Neutrophils % 82.4 H %
(42.2-75.2)
Lymphocytes % 8.6 L %
(20.5-51.1)
Sodium 132 L mmol/L
(135-145)
Chloride 97 L mmol/L
(98-107)
Glucose 161 H mg/dl
(70-99)
Total Bilirubin 1.6 H mg/dl
(0.2-1.3)
Urine Ketones 1+ A
(Negative)
08/01/24 21:45
08/01/24 21:45
Vital Signs
Initial and Last Documented VS:
Initial Vital Signs
Temp Pulse Resp BP Pulse Ox
98.2 F 101 18 138/85 95
08/01/24 21:25 08/01/24 21:25 08/01/24 21:25 08/01/24 21:25 08/01/24 21:25
Last Documented Vital Signs
Temp Pulse Resp BP Pulse Ox
99.5 F 75 23 133/63 93
08/01/24 23:52 08/02/24 01:30 08/02/24 01:30 08/02/24 01:00 08/02/24 01:30
<Mirella Bravo, DO - Last Filed: 08/02/24 01:17>
Orders/Labs/Results
Orders:
Orders
08/01/24 21:28
Electrocardiogram (*1) Urgent
Reason for Study: Hypertension, Benign
CT Head W/o Iv Contrast Urgent
Comment:
Reason For Exam: headche, high blood pressure
Urinalysis Reflex To Culture Urgent
Date Specimen was Collected: 08/01/24
Time Specimen was Collected: 21:29
08/01/24 21:29
EKG- Treatment ONCE
08/01/24 21:45
Complete Blood Count/With Diff Urgent
Comprehensive Metabolic Panel Urgent
Troponin I Urgent
08/02/24 00:47
Valacyclovir HCl [Valtrex] 1,000 mg PO NOW STA
08/02/24 01:13
Acetaminophen [Tylenol] 1,000 mg PO NOW STA
Abnormal Lab Results
08/01/24 08/02/24
21:45 01:52
MCV 80.4 L fL
(81.0-99.0)
MPV 10.7 H fL
(7.4-10.4)
Abs Immat Gran (auto) 0.1 H 10^3/uL
(0-0.05)
Absolute Neuts (auto) 7.0 H 10^3/uL
(1.4-6.5)
Absolute Lymphs (auto) 0.7 L 10^3/uL
(1.2-3.4)
Immature Gran % 1.1 H %
(0-0.5)
Neutrophils % 82.4 H %
(42.2-75.2)
Lymphocytes % 8.6 L %
(20.5-51.1)
Sodium 132 L mmol/L
(135-145)
Chloride 97 L mmol/L
(98-107)
Glucose 161 H mg/dl
(70-99)
Total Bilirubin 1.6 H mg/dl
(0.2-1.3)
Urine Ketones 1+ A
(Negative)
08/01/24 21:45
08/01/24 21:45
Vital Signs
Initial and Last Documented VS:
Initial Vital Signs
Temp Pulse Resp BP Pulse Ox
98.2 F 101 18 138/85 95
08/01/24 21:25 08/01/24 21:25 08/01/24 21:25 08/01/24 21:25 08/01/24 21:25
Last Documented Vital Signs
Temp Pulse Resp BP Pulse Ox
99.5 F 75 23 133/63 93
08/01/24 23:52 08/02/24 01:30 08/02/24 01:30 08/02/24 01:00 08/02/24 01:30
<KIM Chavira - Last Filed: 08/02/24 07:17>
MDM/Problems Addressed
Differential Diagnosis Includes:
shingles, UTI
MDM/Problems Addressed:
prescribe Valtrex for rash.
<Mirella Bravo DO - Last Filed: 08/02/24 01:17>
*Radiology
Radiology exam reviewed: radiology read reviewed
*Pulse Oximetry
Patient hypoxic: no
*EKG
Interpreted by ED Provider?: Yes
Interpretation: normal
Comparison EKG: no changes (Unchanged from previous July 29, 2024)
Rate: normal
Rhythm: sinus
[place]: normal axis
Interval: normal interval
QRS Pattern: normal QRS
Ischemia: no ischemia
*Sheriffs Interpretation
Rate: normal
Interpretation: normal
Rhythm: sinus
*Critical Care Note
Total Time (30-74mins, 75-104mins- exclusive of procedures): Not Applicable
ED Attending Note
<KIM Chavira - Last Filed: 08/02/24 07:17>
-
Portions of this chart may have been created with voice recognition software.� Occasional wrong word or��sound alike� substitutions may have occurred due to the inherent limitations of voice recognition software.
<Mirella Bravo DO - Last Filed: 08/02/24 01:17>
ED Attending Note
Patient seen and examined by attending physician: Yes
I performed the substantive portion of visit, reviewed & personally made and approve the management plan that is documented in note by myself or ROXANNA.: Yes
ED Attending Note:
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
ED 3 days ago with complaints of primarily left flank to left sided abdominal pain, left back pain and was noted to have low-grade fever. Accompanied with some nausea, vomiting, diarrhea. She thought that this was related to eating a bad hamburger.
Labs were unremarkable, urinalysis negative for UTI. CT abdomen pelvis showed infrarenal aneurysm slightly larger than previous but otherwise unremarkable.
She was discharged to home and returns today with similar symptoms and noting left flank to the left abdominal red rash that began yesterday, worse today. She does note some aching pain left low back to the left mid to lower abdominal region but
denies pain at the rash site, denies itch. She continues with intermittent low-grade fevers and overall feeling poorly.
She is concerned for possible UTI as well. She does note chronic urinary frequency and previous UTIs.
Urinalysis during ED visit in March as well as 3 days ago were both negative for UTI.
GENERAL: 74-year-old woman appears her stated age, awake and alert, pleasant, appears in no acute distress. Afebrile. Normotensive.
EYE: pupils equal and reactive. anicteric
NECK: Supple, nontender, no meningismus, no significant adenopathy.
ENT: posterior pharynx is clear, oral mucosa is mildly dry. No rhinorrhea.
CARDIAC: Regular rate and rhythm. no murmur.
LUNGS: Clear breath sounds bilaterally, no acute respiratory distress, no wheezes/rales/rhonchi
ABDOMEN: Soft, nondistended, without focal tenderness, no r/g, no cvat. normoactive BS.
NEUROLOGICAL: Alert and oriented x3, no focal neuro deficits.
SKIN: Warm and dry, normal color, skin intact. There is an erythematous confluent patch with associated small intact vesicles that extends from left flank around to left mid abdomen consistent with acute herpes zoster.
MUSCULOSKELETAL: No clubbing or cyanosis. Trace pretibial edema bilateral lower extremities. Peripheral pulses are full and equal b/l. No palpable tenderness.
PSYCH: Normal and appropriate interaction.
Exam remarkable for acute herpes zoster left lumbar distribution and I suspect this is cause for patient's pain that she has been experiencing over the past 5 to 6 days along with low-grade fever.
Labs again are unremarkable.
Troponin is negative.
CT of the head is unremarkable.
Will initiate 7-day course of Valtrex. Tylenol for pain. Recommend [id number] lidocaine patches as needed and prompt follow-up with PCP.
Discharge Plan
Departure
Patient Disposition: Home (Routine Discharge)
Date of Disposition: 08/02/24
Time of Disposition: 01:13
Patient with high blood pressure during this ER visit?: No
Condition: Good
Discharge Problem:
Acute pain associated with herpes zoster
Instructions: Shingles
Prescriptions:
New
valacyclovir [Valtrex] 1 gram tablet
1,000 mg PO TID Qty: 20 0RF
No Action
lorazepam 0.5 MG tablet
0.5 mg PO Q8HPRN PRN (Reason: anxiety)
Patient Comments:
07/29/2024: last filled 04/11/24, 90 tabs for 30 days from [facility]#[id number]
Eliquis 5 mg Tablet
5 mg PO BID Qty: 60 0RF
prednisone 20 mg Tablet
20 mg PO DAILY
diltiazem HCl 120 mg capsule,extended release 12 hr
120 mg PO DAILY@1600
valacyclovir [Valtrex] 1 gram tablet
1,000 mg PO TID Qty: 21 0RF
Referrals:
Thea Hong MD [Family Provider] -
Interventions
Interventions:
*Risk Screen - Suicide Last Done: 08/01/24 21:24
*General Assessment Last Done: 08/01/24 21:25
*Neglect/Abuse Screening Last Done: 08/01/24 23:54
ED- Fall Risk Assessment Last Done: 08/02/24 02:29
*ED COVID-19 Vaccine History Last Done: 08/01/24 23:54
*Nursing Disposition Last Done: 08/02/24 02:29
ED- Cardiac Assessment Last Done: 08/01/24 23:54
ED- Neurological Assessment Last Done: 08/01/24 23:54
ED- Pulmonary Assessment Last Done: 08/01/24 23:54
Discharge Date and Time
Discharge Date/Time: 08/02/24 03:04
Print Language: BULGARIAN
[2024-08-02 01:00] VITALS: BP 133/63
[2024-08-02] MEDS: VALTREX 1000 MG PO (01:07)
[2024-08-02] MEDS: TYLENOL 1000 MG PO (01:40)
[2024-08-02 02:11] LABS: Urine Albumin Negative (Neg - Trace); Urine Bilirubin Negative (Negative); Urine Character Clear (Clear); Urine Color Yellow; Urine Glucose Negative (Negative); Urine Ketone 1+ (Negative); Urine Leukocyte Negative (Negative); Urine Nitrite Negative (Negative); Urine Occult Blood Negative (Negative); Urine Urobilinogen Negative (Neg - 1+)
== END 2024-08-02 03:04 | disposition home or self-care (01) ==
LOC: EMR 21:22
PROVIDERS: Student in an Organized Health Care Education/Training Program; EMERGENCY PHYSICIAN Emergency Medicine; FAMILY PHYSICIAN Internal Medicine
DX: B02.9 Zoster without complications (principal); M54.9 Dorsalgia, unspecified; R51.9 Headache, unspecified; Z87.891 Personal history of nicotine dependence; I10 Essential (primary) hypertension
CPT/HCPCS: 99285; 70450; 80053; 81003; 84484; 85025; 93005

== ENCOUNTER 2024-08-07 03:51 | Emergency (ER) | payer MEDICARE, BC, SELFPAY ==
[2024-08-07 03:52] VITALS: BMI 27.1
[2024-08-07 03:54] VITALS: BP 152/92
[2024-08-07 04:00] VITALS: BP 143/69
[2024-08-07 04:19] VITALS: BP 143/69
[2024-08-07 04:54] LABS: % Basophils 0.7 % (0-2); % Eosinophils 1.1 % (0-6); % Immature Granulocytes 0.6 % (0-0.5); % Monocytes 10.8 % (1.7-9.3); % Neutrophils 52.8 % (42.2-75.2); Absolute Basophils 0.1 10^3/uL (0-0.2); Absolute Eosinophils 0.1 10^3/uL (0-0.7); Absolute Immature Granulocytes 0.1 10^3/uL (0-0.05); Absolute Lymphocytes 2.9 10^3/uL (1.2-3.4); Absolute Monocytes 0.9 10^3/uL (0.1-0.6); Absolute Neutrophils 4.5 10^3/uL (1.4-6.5); Hemoglobin 13.2 g/dL (12.0-16.0); Mean Corpuscular Hgb 27.7 pg (27.0-31.0); Mean Platelet Volume 11.3 fL (7.4-10.4); Nucleated Red Blood Cells % 0 %; Platelet Count 201 10^3/uL (130-400); Red Blood Cell Count 4.76 10^6/uL (4.20-5.40); Red Cell Dist. Width 13.6 % (11.5-14.5); White Blood Cell Count 8.5 10^3/uL (4.8-10.8)
[2024-08-07 05:05] LABS: ALT (SGPT) 26 U/L (0-35); AST (SGOT) 26 U/L (14-36); Albumin 3.9 g/dl (3.5-5.0); Alkaline Phosphatase 66 U/L (38-126); Blood Urea Nitrogen 16 mg/dl (7-17); Calcium 8.7 mg/dl (8.4-10.2); Carbon Dioxide 24 mmol/L (22-30); Chloride 106 mmol/L (98-107); Estimated Creatinine Clearance 58 ml/min; Glucose 116 mg/dl (70-99); Potassium 3.6 mmol/L (3.5-5.1); Sodium 141 mmol/L (135-145); Total Bilirubin 0.5 mg/dl (0.2-1.3); Total Protein 6.3 g/dl (6.3-8.2); eGFR > 60.00
[2024-08-07] MEDS: LIDOCAINE 4% PATCH 1 PATCH TOPICAL ×2 (05:50→06:29)
[2024-08-07 06:01] LABS: Urine Albumin Negative (Neg - Trace); Urine Bilirubin Negative (Negative); Urine Character Clear (Clear); Urine Color Yellow; Urine Glucose Negative (Negative); Urine Ketone Negative (Negative); Urine Leukocyte Negative (Negative); Urine Nitrite Negative (Negative); Urine Occult Blood Negative (Negative); Urine Urobilinogen Negative (Neg - 1+)
--- NOTE | 2024-08-07 06:03 | EDRN ---
Pt. removed herself from monitor, refusing repeat vitals. Pt. states, 'I am the only one in pain here, I want to leave'. aware, pt. medicated for pain per MAR orders.
[2024-08-07] MEDS: NEURONTIN 300 MG PO (06:30)
--- NOTE | 2024-08-07 07:22 | ED.GENMED ---
History of Present Illness
General
Chief Complaint: Flank Pain
Source: patient and previous hospital records (ED visit July 29 as well as August 02 for very similar complaints of left flank pain. Found to have acute herpes zoster left truncal on second ED visit August 02)
Exam Limitations: none
Time Seen by Provider: 08/07/24 05:36
Nursing documentation reviewed up to this point in time: agreed with
History of Present Illness
History of Present Illness:
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
and then again August 02 with complaints of left flank pain radiating around to her left mid abdomen. CT abdomen pelvis on the was unremarkable, showing stable infrarenal aneurysm otherwise unremarkable. Labs were unremarkable. She
returned August 02 with continued pain and was noted to have acute herpes zoster rash left flank to left mid abdomen likely contributing to her left flank pain. She was started on a 7-day course of Valtrex and recommended to utilize Lidoderm
patches for discomfort.
Patient returns tonight with continued left flank pain, concerned that the pain is related to her kidney. She has not had a fever nor chills.
She has not been taking anything for pain.
Past History
Past History
ED Past Medical History: GERD, Hypercholesterolemia, Hypothyroidism, Psychiatric (Anxiety) and Other (Arthritis, UTI)
ED Past Surgical History: Appendectomy and Gynecological (Hysterectomy, bladder suspension)
Social History
Tobacco: Former smoker
Alcohol: None
Drug: None
Personal:
Living: with family
Family History
Family History: Other (Noncontributory)
Phy Exam
Physical Exam
Physical Exam:
GENERAL: 74-year-old woman appears her stated age, awake and alert, somewhat agitated, argumentative at first but promptly cooperative and appeased during initial evaluation.
EYE: . anicteric
NECK: Supple, nontender, no meningismus, no significant adenopathy.
ENT: oral mucosa is moist. No rhinorrhea.
CARDIAC: Regular rate and rhythm. no murmur.
LUNGS: Clear breath sounds bilaterally, no acute respiratory distress, no wheezes/rales/rhonchi
ABDOMEN: Soft, nondistended, mild tenderness about the left posterior to lateral flank associated with subacute herpes zoster dermatitis left mid truncal distribution. No r/g, no cvat. normoactive BS.
NEUROLOGICAL: Alert and oriented x3, no focal neuro deficits. Gait is lauren and steady.
SKIN: Warm and dry, normal color, skin intact. Subacute herpes zoster dermatitis left mid truncal distribution.
MUSCULOSKELETAL: No C/C/E. peripheral pulses are full and equal b/l. No palpable tenderness.
PSYCH: Mildly anxious. Cooperative.
Course
Orders/Labs/Results
Orders:
Orders
08/07/24 04:24
Complete Blood Count/With Diff Urgent
Comprehensive Metabolic Panel Urgent
08/07/24 05:38
Lidocaine [Lidocaine 4% Patch] 1 patch TOPICAL NOW STA
Apply Lidocaine patch(s) to:: left flank
08/07/24 05:48
Urinalysis Reflex To Culture Urgent
Date Specimen was Collected: 08/07/24
Time Specimen was Collected: 05:47
08/07/24 06:22
Gabapentin [Neurontin] 300 mg PO NOW STA
Lidocaine [Lidocaine 4% Patch] 1 patch TOPICAL NOW STA
Apply Lidocaine patch(s) to:: left anterior abdomen
Abnormal Lab Results
08/07/24
04:24
MPV 11.3 H fL
(7.4-10.4)
Abs Immat Gran (auto) 0.1 H 10^3/uL
(0-0.05)
Absolute Monos (auto) 0.9 H 10^3/uL
(0.1-0.6)
Immature Gran % 0.6 H %
(0-0.5)
Monocytes % 10.8 H %
(1.7-9.3)
Glucose 116 H mg/dl
(70-99)
08/07/24 04:24
08/07/24 04:24
Vital Signs
Initial and Last Documented VS:
Initial Vital Signs
Temp Pulse Resp BP Pulse Ox
98.5 F 87 18 152/92 99
08/07/24 03:54 08/07/24 03:54 08/07/24 03:54 08/07/24 03:54 08/07/24 03:54
Last Documented Vital Signs
Temp Pulse Resp BP Pulse Ox
98.5 F 85 32 143/69 99
08/07/24 03:54 08/07/24 05:30 08/07/24 05:30 08/07/24 04:19 08/07/24 04:47
MDM/Problems Addressed
Differential Diagnosis Includes:
Highly suspect the patient's ongoing left flank pain is herpes zoster neuropathy in nature.
She is convinced that she has not been experiencing pain related to her shingles however I disagree and note that patient initially presented on July 29 with similar pain and this was likely herpes zoster prodromal neuropathic pain in nature.
Will check labs and urinalysis and plan for lidocaine patch. Will consider initiation of gabapentin at nighttime to assist with neuropathic pain.
Chronic conditions affecting care: HTN and Arrhythmia
Acute Exacerbation and/or Progression of Chronic Illness: Other (Persistent neuropathic pain related to acute herpes zoster)
*Pulse Oximetry
Patient hypoxic: no
*Critical Care Note
Total Time (30-74mins, 75-104mins- exclusive of procedures): Not Applicable
Update Note
Update Note:
Patient is resting comfortably, admits to moderate bruising and pain after lidocaine patch applied to left flank. She is requesting additional patch to left mid abdomen.
Labs again are unremarkable as is urinalysis.
Recommend she finish Valtrex, continue Tylenol as needed for pain. Will add lidocaine patch and will add gabapentin 300 mg to be taken at bedtime.
We did discuss initiation of Shingrix vaccine after a 3 to 4-month post shingles.. Patient states she is allergic to all vaccinations and thus this is not an option for her.
Encouraged prompt follow-up with PCP for recheck.
ED Attending Note
-
Portions of this chart may have been created with voice recognition software.� Occasional wrong word or��sound alike� substitutions may have occurred due to the inherent limitations of voice recognition software.
Discharge Plan
Departure
Patient Disposition: Home (Routine Discharge)
Date of Disposition: 08/07/24
Time of Disposition: 07:24
Patient with high blood pressure during this ER visit?: No
Condition: Good
Discharge Problem:
Herpes zoster dermatitis, Acute herpes zoster neuropathy
Instructions: Shingles
Prescriptions:
New
gabapentin 300 mg capsule
300 mg PO HS Qty: 20 0RF
lidocaine 4 % adhesive patch,medicated
2 patch topical DAILY PRN (Reason: Pain) Qty: 10 0RF
No Action
lorazepam 0.5 MG tablet
0.5 mg PO Q8HPRN PRN (Reason: anxiety)
Patient Comments:
07/29/2024: last filled 04/11/24, 90 tabs for 30 days from [facility]#[id number]
Eliquis 5 mg Tablet
5 mg PO BID Qty: 60 0RF
prednisone 20 mg Tablet
20 mg PO DAILY
diltiazem HCl 120 mg capsule,extended release 12 hr
120 mg PO DAILY@1600
valacyclovir [Valtrex] 1 gram tablet
1,000 mg PO TID Qty: 21 0RF
valacyclovir [Valtrex] 1 gram tablet
1,000 mg PO TID Qty: 20 0RF
Referrals:
UNKNOWN - PT DOES,NOT KNOW [Family Provider] - Call in 1-3 days for appt
Interventions
Interventions:
*Risk Screen - Suicide Last Done: 08/07/24 03:54
*General Assessment Last Done: 08/07/24 03:54
*Neglect/Abuse Screening Last Done: 08/07/24 05:58
ED- Fall Risk Assessment Last Done: 08/07/24 05:58
*ED COVID-19 Vaccine History Last Done: 08/07/24 05:58
FN-[id number] Assessment Last Done: 08/07/24 05:34
ED-Female Genitourinary Assessment Last Done: 08/07/24 05:34
Discharge Date and Time
Print Language: CROATIAN
[2024-08-07 07:30] VITALS: BP 151/72
== END 2024-08-07 07:30 | disposition home or self-care (01) ==
LOC: EMR 03:51
PROVIDERS: EMERGENCY PHYSICIAN Emergency Medicine
DX: B02.8 Zoster with other complications (principal); B02.29 Other postherpetic nervous system involvement; I48.91 Unspecified atrial fibrillation; I10 Essential (primary) hypertension; E78.00 Pure hypercholesterolemia, unspecified; E03.9 Hypothyroidism, unspecified; F41.9 Anxiety disorder, unspecified; K21.9 Gastro-esophageal reflux disease without esophagitis; M19.90 Unspecified osteoarthritis, unspecified site; Z79.01 Long term (current) use of anticoagulants; Z87.440 Personal history of urinary (tract) infections; Z87.891 Personal history of nicotine dependence; Z90.49 Acquired absence of other specified parts of digestive tract; Z90.710 Acquired absence of both cervix and uterus
CPT/HCPCS: 99283; 80053; 81003; 85025

== ENCOUNTER → 2024-10-01 13:07 | Outpatient (REF) | payer MEDICARE, BC, SELFPAY | LOC: RAD 13:07 | PROVIDERS: ATTENDING PHYSICIAN Internal Medicine Endocrinology, Diabetes & Metabolism; FAMILY PHYSICIAN Family Medicine | DX: E03.9 Hypothyroidism, unspecified (principal) | CPT/HCPCS: 76536 ==

== ENCOUNTER 2024-12-27 19:58 | Emergency (ER) | payer MEDICARE, SELFPAY ==
[2024-12-27 20:18] VITALS: BP 148/86
[2024-12-27 20:37] LABS: Urine Albumin 2+ (Neg - Trace); Urine Bilirubin Negative (Negative); Urine Character Clear (Clear); Urine Color Yellow; Urine Glucose Negative (Negative); Urine Ketone Negative (Negative); Urine Leukocyte 2+ (Negative); Urine Nitrite Negative (Negative); Urine Occult Blood 1+ (Negative); Urine Specific Gravity 1.015 (<1.030); Urine Urobilinogen Negative (Neg - 1+)
[2024-12-27 20:45] LABS: Urine Mucus Moderate; Urine Squamous Cell 26-30 /LPF (Few)
[2024-12-27 20:46] LABS: Urine White Cell 21-25 /HPF (0-5)
[2024-12-27 20:47] LABS: Urine Bacteria Moderate (Negative)
== END 2024-12-27 21:17 ==
LOC: EMR 19:58
PROVIDERS: EMERGENCY PHYSICIAN Emergency Medicine
DX: R05.9 Cough, unspecified (principal); J10.1 Influenza due to other identified influenza virus with other respiratory manifestations; Z53.21 Procedure and treatment not carried out due to patient leaving prior to being seen by health care provider
CPT/HCPCS: 99281; 81003; 81015; 87077; 87086; 87502

== ENCOUNTER 2025-03-04 12:44 | Emergency (ER) | payer MEDICARE, SELFPAY ==
[2025-03-04 12:46] VITALS: BP 139/81
--- NOTE | 2025-03-04 12:54 | EDRN ---
Pt in waiting room with family, pt stating ' They did not take my BP and just sat me out here'. Pt informed that the triage nurse did take her BP, symptoms of what brought her to the ER and now she is just currently waiting on bed assignment to be
seen by provider in the ER. Pt calling out ' I need a water' Ice water provided for patient, comfort and reassurance offered by this RN.
[2025-03-04] MEDS: ANCEF 10 IV (13:28)
--- NOTE | 2025-03-04 13:28 | ED.GENMED ---
History of Present Illness
General
Chief Complaint: Skin Problem
Source: patient
Exam Limitations: none
Time Seen by Provider: 03/04/25 13:09
History of Present Illness
History of Present Illness:
Patient is a 75-year-old female complaining of pain swelling redness to the left arm. Started 2 days ago. No trauma. No fever or chills. No nausea or vomiting. In addition patient states she has a known abdominal aneurysm that she states her
business continuity planning director has been begging her to get down to [facility] over the last 3 to 4 weeks that she has ignored. However she denies acute abdominal symptoms at this time.
Past History
Past History
ED Past Medical History: GERD, Hypercholesterolemia, Hypothyroidism, Psychiatric (Anxiety) and Other (Arthritis, UTI)
ED Past Surgical History: Appendectomy and Gynecological (Hysterectomy, bladder suspension)
Social History
Tobacco: Former smoker
Alcohol: None
Drug: None
Personal:
Living: with family
Family History
Family History: Other (Noncontributory)
Review of Systems
Review of Systems
All Other Systems: Not applicable
Respiratory: Reports no symptoms
Cardiac: Reports no symptoms
Phy Exam
Physical Exam
Physical Exam:
GENERAL: Alert and oriented in no apparent distress
EYE: Orbits normal.
NECK: Supple
CARDIAC: Regular rate and rhythm without any obvious murmurs.
LUNGS: Clear breath sounds,normal
NEUROLOGICAL: Alert and oriented , grossly non-focal
SKIN: Warm and dry, erythema towards the left posterior elbow just below the olecranon to the mid forearm. Small scab noted there. Some tenderness. No fluctuance. Good distal pulses and color. No pain with elbow flexion extension or rotation
MUSCULOSKELETAL: No edema,no deformity.Good color
PSYCH: Normal and appropriate interaction.
Course
Orders/Labs/Results
Orders:
Orders
03/04/25 13:21
IV Insert/Care/Rem.- Treatment PRN
CeFAZolin 2 GRAM [Ancef] 2 grams in 10 ml IV NOW
03/04/25 13:24
Basic Metabolic Panel Urgent
Complete Blood Count/With Diff Urgent
Blood Culture Q30M
ABEL Source: Blood/Venous
Specimen Description:
Blood Culture Q30M
ABEL Source: Blood/Venous
Specimen Description:
Abnormal Lab Results
03/04/25
13:24
MCHC 32.9 L g/dL
(33.0-37.0)
MPV 11.3 H fL
(7.4-10.4)
Abs Immat Gran (auto) 0.1 H 10^3/uL
(0-0.05)
Absolute Monos (auto) 0.8 H 10^3/uL
(0.1-0.6)
Immature Gran % 0.8 H %
(0-0.5)
Lymphocytes % 19.4 L %
(20.5-51.1)
Monocytes % 10.6 H %
(1.7-9.3)
03/04/25 13:24
03/04/25 13:24
Vital Signs
Initial and Last Documented VS:
Initial Vital Signs
Temp Pulse Resp BP Pulse Ox
99.4 F 100 18 139/81 97
03/04/25 12:46 03/04/25 12:46 03/04/25 12:46 03/04/25 12:46 03/04/25 12:46
Last Documented Vital Signs
Temp Pulse Resp BP Pulse Ox
99.4 F 100 18 139/81 97
03/04/25 12:46 03/04/25 12:46 03/04/25 12:46 03/04/25 12:46 03/04/25 12:46
MDM/Problems Addressed
Differential Diagnosis Includes:
Patient has 2 clearly unrelated symptoms. Cellulitis to the left arm clinically nontoxic. I do not feel clinically involves the joint. No fluctuance or abscess. Secondarily is this history of abdominal aneurysm which we are trying to contact
[facility] and gather more information on
*Critical Care Note
Total Time (30-74mins, 75-104mins- exclusive of procedures): Not Applicable
Data Reviewed
Review of Other/Old Records Reveals: Labs, Records and Testing
Update Note
Update Note:
1435... Discussed CT results with patient's business continuity planning director who had ordered the previous CT. Intra-abdominal aneurysm is stable at 3.4 cm and has not changed. She has been seen by vascular surgery. No emergent treatment needed. She has no
acute complaints related to this issue. As for her cellulitis it is localized to the left elbow. She is nontoxic. There is no drainable abscess clinically. She has no fever or white count. I discussed inpatient versus outpatient management.
Given her family dynamics she would very much prefer outpatient management. I feel that it is reasonable to transition to oral antibiotics with close follow-up. I stated I could check her tomorrow between 8 and 4 without signing in for
reevaluation. She is comfortable with this approach
ED Attending Note
-
Portions of this chart may have been created with voice recognition software.� Occasional wrong word or��sound alike� substitutions may have occurred due to the inherent limitations of voice recognition software.
Discharge Plan
Departure
Patient Disposition: Home (Routine Discharge)
Date of Disposition: 03/04/25
Time of Disposition: 14:51
Patient with high blood pressure during this ER visit?: Yes
Discharge Problem:
Cellulitis left arm, Known abdominal aortic aneurysm
Instructions: Cellulitis (Skin Infection), Adult (DC), BLOOD PRESSURE
Prescriptions:
New
cephalexin 500 mg capsule
1,000 mg PO BID 7 Days Qty: 28 0RF
No Action
lorazepam 0.5 MG tablet
0.5 mg PO Q8HPRN PRN (Reason: anxiety)
Patient Comments:
07/29/2024: last filled 04/11/24, 90 tabs for 30 days from [id number]
Eliquis 5 mg Tablet
5 mg PO BID Qty: 60 0RF
prednisone 20 mg Tablet
20 mg PO DAILY
diltiazem HCl 120 mg capsule,extended release 12 hr
120 mg PO DAILY@1600
valacyclovir [Valtrex] 1 gram tablet
1,000 mg PO TID Qty: 21 0RF
valacyclovir [Valtrex] 1 gram tablet
1,000 mg PO TID Qty: 20 0RF
gabapentin 300 mg capsule
300 mg PO HS Qty: 20 0RF
lidocaine 4 % adhesive patch,medicated
2 patch topical DAILY PRN (Reason: Pain) Qty: 10 0RF
Referrals:
NONE,* [Family Provider] -
Tonny Blum MD [Active] - Next open appointment
Activity Restrictions/Additional Instructions:
As we discussed, make sure you get a dose of antibiotics in tonight and tomorrow morning
I am happy to recheck this tomorrow between 8 and 4. As we discussed do not sign in the front I will just recheck it and see how it is doing
You should follow-up with vascular surgery either at [facility] or I did list our vascular surgeon that you could follow-up with you if you desire. Follow-up further recommendations
Interventions
Interventions:
*Risk Screen - Suicide Last Done: 03/04/25 12:46
*General Assessment Last Done: 03/04/25 12:46
*Neglect/Abuse Screening Last Done: 03/04/25 12:46
*ED COVID-19 Vaccine History Last Done: 03/04/25 12:46
ED-Skin Assessment Last Done: 03/04/25 13:13
Discharge Date and Time
Print Language: SCOTTISH
[2025-03-04 13:49] LABS: % Basophils 0.5 % (0-2); % Eosinophils 1.4 % (0-6); % Immature Granulocytes 0.8 % (0-0.5); % Lymphocytes 19.4 % (20.5-51.1); % Monocytes 10.6 % (1.7-9.3); % Neutrophils 67.3 % (42.2-75.2); Absolute Eosinophils 0.1 10^3/uL (0-0.7); Absolute Immature Granulocytes 0.1 10^3/uL (0-0.05); Absolute Lymphocytes 1.5 10^3/uL (1.2-3.4); Absolute Monocytes 0.8 10^3/uL (0.1-0.6); Absolute Neutrophils 5.3 10^3/uL (1.4-6.5); Hematocrit 39.5 % (37.0-47.0); Mean Corp Hgb Conc. 32.9 g/dL (33.0-37.0); Mean Corpuscular Hgb 29.1 pg (27.0-31.0); Mean Corpuscular Volume 88.4 fL (81.0-99.0); Mean Platelet Volume 11.3 fL (7.4-10.4); Nucleated Red Blood Cells % 0 %; Platelet Count 161 10^3/uL (130-400); Red Blood Cell Count 4.47 10^6/uL (4.20-5.40); White Blood Cell Count 7.8 10^3/uL (4.8-10.8)
[2025-03-04 14:03] LABS: Blood Urea Nitrogen 15 mg/dl (7-17); Calcium 8.7 mg/dl (8.4-10.2); Carbon Dioxide 28 mmol/L (22-30); Chloride 105 mmol/L (98-107); Glucose 91 mg/dl (70-99); Potassium 3.5 mmol/L (3.5-5.1); Sodium 139 mmol/L (135-145); eGFR > 60.00
[2025-03-04 14:56] VITALS: BP 154/72
== END 2025-03-04 15:44 | disposition home or self-care (01) ==
LOC: EMR 12:44
PROVIDERS: EMERGENCY PHYSICIAN Emergency Medicine
DX: L03.114 Cellulitis of left upper limb (principal); I71.40 Abdominal aortic aneurysm, without rupture, unspecified; K21.9 Gastro-esophageal reflux disease without esophagitis; E78.00 Pure hypercholesterolemia, unspecified; E03.9 Hypothyroidism, unspecified; F41.9 Anxiety disorder, unspecified; M19.90 Unspecified osteoarthritis, unspecified site; Z87.440 Personal history of urinary (tract) infections; Z87.891 Personal history of nicotine dependence; Z90.49 Acquired absence of other specified parts of digestive tract; Z90.710 Acquired absence of both cervix and uterus
CPT/HCPCS: 99283; 96374; 80048; 85025; 87040

== ENCOUNTER 2025-03-05 14:23 | Emergency (ER) | payer MEDICARE, SELFPAY ==
[2025-03-05 14:26] VITALS: BP 136/85
[2025-03-05 14:49] LABS: % Basophils 0.3 % (0-2); % Eosinophils 1.3 % (0-6); % Immature Granulocytes 0.7 % (0-0.5); % Lymphocytes 17.1 % (20.5-51.1); % Monocytes 8.5 % (1.7-9.3); % Neutrophils 72.1 % (42.2-75.2); Absolute Eosinophils 0.1 10^3/uL (0-0.7); Absolute Immature Granulocytes 0.1 10^3/uL (0-0.05); Absolute Lymphocytes 1.6 10^3/uL (1.2-3.4); Absolute Monocytes 0.8 10^3/uL (0.1-0.6); Absolute Neutrophils 6.8 10^3/uL (1.4-6.5); Hematocrit 44.5 % (37.0-47.0); Hemoglobin 14.5 g/dL (12.0-16.0); Mean Corp Hgb Conc. 32.6 g/dL (33.0-37.0); Mean Corpuscular Hgb 28.7 pg (27.0-31.0); Mean Corpuscular Volume 88.1 fL (81.0-99.0); Mean Platelet Volume 10.9 fL (7.4-10.4); Nucleated Red Blood Cells % 0 %; Platelet Count 185 10^3/uL (130-400); Red Blood Cell Count 5.05 10^6/uL (4.20-5.40); White Blood Cell Count 9.4 10^3/uL (4.8-10.8)
[2025-03-05 15:01] LABS: ALT (SGPT) 16 U/L (0-35); AST (SGOT) 19 U/L (14-36); Albumin 4.1 g/dl (3.5-5.0); Alkaline Phosphatase 70 U/L (38-126); Blood Urea Nitrogen 16 mg/dl (7-17); Carbon Dioxide 29 mmol/L (22-30); Chloride 100 mmol/L (98-107); Glucose 107 mg/dl (70-99); Potassium 3.9 mmol/L (3.5-5.1); Sodium 136 mmol/L (135-145); Total Bilirubin 1.6 mg/dl (0.2-1.3); Total Protein 6.8 g/dl (6.3-8.2); eGFR > 60.00
--- NOTE | 2025-03-05 15:42 | ED.GENMED ---
History of Present Illness
General
Chief Complaint: Skin Problem
Source: patient
Exam Limitations: none
Time Seen by Provider: 03/05/25 15:41
History of Present Illness
History of Present Illness:
75-year-old female returns for reevaluation of his cellulitis. I saw the patient yesterday. Started on oral antibiotics after an IV dose. Patient states she feels somewhat worse than yesterday with low-grade fever.
Past History
Past History
ED Past Medical History: GERD, Hypercholesterolemia, Hypothyroidism, Psychiatric (Anxiety) and Other (Arthritis, UTI)
ED Past Surgical History: Appendectomy and Gynecological (Hysterectomy, bladder suspension)
Social History
Tobacco: Former smoker
Alcohol: None
Drug: None
Personal:
Living: with family
Family History
Family History: Other (Noncontributory)
Review of Systems
Review of Systems
Constitutional: Reports fever
Phy Exam
Physical Exam
Physical Exam:
GENERAL: Alert and oriented in no apparent distress
LUNGS: No respiratory distress
NEUROLOGICAL: Alert and oriented , grossly non-focal
SKIN: Warm and dry, cellulitis left upper ext. Possibly slightly extending
PSYCH: Normal and appropriate interaction.
Sepsis
Sepsis Screening
Sepsis Assessment: Sepsis Ruled Out
Sepsis Screen
Sepsis Screen: Sepsis Ruled Out
Date: 03/06/25
Time: 05:53
Course
Orders/Labs/Results
Orders:
Orders
03/05/25 14:38
Complete Blood Count/With Diff Urgent
Comprehensive Metabolic Panel Urgent
Lactic Acid Urgent
Blood Culture Urgent
ABEL Source: Blood/Venous
Specimen Description:
03/05/25 15:50
0.9% Sodium Chloride 500 ml [Nss] 500 ml IV BOLUS
03/05/25 17:29
Vancomycin [Vancocin] 1,500 mg 0.9% Sodium Chloride 500 ml [Nss] 500 ml IV NOW
Abnormal Lab Results
03/05/25
14:38
MCHC 32.6 L g/dL
(33.0-37.0)
MPV 10.9 H fL
(7.4-10.4)
Abs Immat Gran (auto) 0.1 H 10^3/uL
(0-0.05)
Absolute Neuts (auto) 6.8 H 10^3/uL
(1.4-6.5)
Absolute Monos (auto) 0.8 H 10^3/uL
(0.1-0.6)
Immature Gran % 0.7 H %
(0-0.5)
Lymphocytes % 17.1 L %
(20.5-51.1)
Glucose 107 H mg/dl
(70-99)
Total Bilirubin 1.6 H mg/dl
(0.2-1.3)
03/05/25 14:38
03/05/25 14:38
Vital Signs
Initial and Last Documented VS:
Initial Vital Signs
Temp Pulse Resp BP Pulse Ox
100.7 F H 111 18 136/85 97
03/05/25 14:26 03/05/25 14:26 03/05/25 14:26 03/05/25 14:26 03/05/25 14:26
Last Documented Vital Signs
Temp Pulse Resp BP Pulse Ox
99.6 F 85 22 147/88 98
03/05/25 18:00 03/05/25 21:45 03/05/25 21:45 03/05/25 21:45 03/05/25 21:45
MDM/Problems Addressed
Differential Diagnosis Includes:
Patient's arm does not appear significantly different to me then yesterday however there is some extension beyond the border and 1 area in addition she does have a fever. Warrants inpatient management.
*Critical Care Note
Total Time (30-74mins, 75-104mins- exclusive of procedures): Not Applicable
Data Reviewed
Review of Other/Old Records Reveals: Labs, Records and Testing
ED Attending Note
-
Portions of this chart may have been created with voice recognition software.� Occasional wrong word or��sound alike� substitutions may have occurred due to the inherent limitations of voice recognition software.
Discharge Plan
Departure
Patient Disposition: Against Medical Advice
Date of Disposition: 03/05/25
Time of Disposition: 15:45
Discharge Problem:
Ongoing cellulitis left upper extremity
Prescriptions:
No Action
Eliquis 5 mg Tablet
5 mg PO BID Qty: 60 0RF
prednisone 20 mg Tablet
20 mg PO QPM
diltiazem HCl 120 mg capsule,extended release 12 hr
120 mg PO QPM
cephalexin 500 mg capsule
1,000 mg PO BID 7 Days Qty: 28 0RF
lorazepam 0.5 mg Tablet
0.5 mg PO DAILYPRN PRN (Reason: anixety)
Interventions
Interventions:
*Risk Screen - Suicide Last Done: 03/05/25 14:25
*General Assessment Last Done: 03/05/25 14:25
*Neglect/Abuse Screening Last Done: 03/05/25 14:25
*ED- Fall Risk Assessment Last Done: 03/05/25 16:38
*Nursing Disposition Last Done: 03/05/25 22:06
ED-Skin Assessment Last Done: 03/05/25 16:38
Discharge Date and Time
Discharge Date/Time: 03/05/25 22:07
Print Language: UKRAINIAN
[2025-03-05 16:11] VITALS: BMI 27.2
--- NOTE | 2025-03-05 16:56 | HPS.HSE ---
Family Physician
-
Family Physician: Bryon Reese
Chief Complaint
-
Expanding left upper arm cellulitis
History of Present Illness
75-year-old female who was diagnosed with left upper extremity cellulitis yesterday 03/04/2025 in the ER. She was given IV antibiotics then transition to oral Keflex 1000 mg twice daily for 14-day course, however she reports her arm has increased
pain with increased erythema beyond the border marking yesterday along with a temperature of 100.7 F. She also reports she is allergic to Keflex the patient denies headache, sore throat, chest pain, palpitations, cough, shortness of breath,
abdominal pain, nausea, vomiting, diarrhea, urinary symptoms, rash. It is unclear why patient is on prednisone 20 mg every afternoon she is not aware. She is reporting she will not stay in the hospital without her and her son being able to
stay in the room with her. It is reported that she got permission through the hospital to have her family member stay
She has past medical history of A-fib�paroxysmal GERD, HLD, DM2 hypothyroidism, anxiety, arthritis, UTIs, bladder suspension surgery, former smoker, hysterectomy, known intra-abdominal aneurysm stable at 3.4 cm unchanged�had CT on 03/04/2025,
colovesicular fistula untreated, rectocele, SMA stenosis, herpes zoster left flank with chronic neuropathy 08/07/2024
Medical History
Past Medical History
Past Medical History: Reports Other
Additional Past Medical History:
GERD
HLD
hypothyroidism
anxiety
arthritis
UTIs
bladder suspension surgery
Chronic asthmatic bronchitis�last treated inpatient 03/02/2023
former smoker
known intra-abdominal aneurysm stable at 3.4 cm unchanged�had CT on 03/04/2025
SMA stenosis
Colovesicular fistula untreated
Rectocele
Past Surgical History: Reports Other
Additional Past Surgical History:
hysterectomy
Appendectomy
Bladder suspension
Social History
Tobacco: Non-smoker
Alcohol: None
Drug: None
Personal:
Living: With Family ( with dementia son mentally handicapped)
Employment: Retired
Allergies / Home Medications
Allergies reflects when Allergies were last updated in [employer].
Home Medications with original date entered in [employer]
Allergy/Medication List:
Allergies
Allergy/AdvReac Type Severity Reaction Status Date / Time
acetaminophen Allergy Unknown Verified 03/04/25 12:51
adhesive tape [Adhesive Tape] Allergy REDNESS Verified 03/04/25 12:51
alprazolam Allergy Unknown Verified 03/04/25 12:51
codeine Allergy Headache Verified 03/04/25 12:51
cyanocobalamin Allergy LEFT SIDED Verified 03/04/25 12:51
[From Vitamin B-12] NUMBNESS
etodolac [From Lodine] Allergy Hives Verified 03/04/25 12:51
ezetimibe Allergy Unknown Verified 03/04/25 12:51
gadobutrol [From Gadavist] Allergy Hives Verified 03/04/25 12:51
ibuprofen [Ibuprofen] Allergy STOMACH Verified 03/04/25 12:51
PAINS
Iodinated Contrast Media Allergy Hives Verified 03/04/25 12:51
[Iodinated Contrast Media -
IV Dye]
iodine Allergy Hives/(CONTRAST Verified 03/04/25 12:51
DYE
ALLERGY)
iodoform Allergy Unknown Verified 03/04/25 12:51
ioversol Allergy Unknown Verified 03/04/25 12:51
metoclopramide Allergy Unknown Verified 03/04/25 12:51
nabumetone Allergy TREMORS Verified 03/04/25 12:51
NSAIDS (Non-Steroidal Allergy Unknown Verified 03/04/25 12:51
Anti-Inflamma
oxycodone Allergy Unknown Verified 03/04/25 12:51
pentoxifylline Allergy Unknown Verified 03/04/25 12:51
potassium iodide Allergy Unknown Verified 03/04/25 12:51
propoxyphene Allergy Unknown Verified 03/04/25 12:51
simvastatin Allergy Unknown Verified 03/04/25 12:51
Sulfa (Sulfonamide Allergy Unknown Verified 03/04/25 12:51
Antibiotics)
cobamamide Allergy Unknown Uncoded 03/04/25 12:51
novacaine Allergy Unknown Uncoded 03/04/25 12:51
Home Medications
apixaban 5 mg tablet (Eliquis) 5 mg PO BID #60 tabs 04/14/23
diltiazem HCl 120 mg capsule,extended release 12 hr 120 mg PO QPM 07/29/24
prednisone 20 mg tablet 20 mg PO QPM 07/29/24
cephalexin 500 mg capsule 1,000 mg (2 x 500 mg) PO BID 7 days #28 caps 03/04/25
lorazepam 0.5 mg tablet 0.5 mg PO DAILYPRN PRN anixety 03/05/25
Review of Systems
-
History Source: Patient and Family ( and son in room both are mute)
A 12 point ROS was completed and negative except as noted: Yes
Constitutional: Reports Fever and Chills
EENT: Denies Sore Throat or Runny Nose
Respiratory: Denies Cough or Trouble Breathing
Cardiac: Denies Chest Pain, Diaphoresis, Palpitations or Syncope
Abdomen/GI: Denies Abdominal Pain, Nausea, Vomiting, Diarrhea, Constipated, Bloody Stools or Black Stools
: Denies Dysuria, Frequency, Flank Pain, Incontinence, Difficulty Voiding or Urgency
Musculoskeletal: Reports Joint Pain and Edema (Expanding erythema out of marked lines from yesterday 03/04/2025 and edema from left forearm above elbow and circumferential)
Skin: Denies Itching or Rash
Neurological: Denies Dizzy or Headache
Endocrine: Reports No Symptoms
Hematologic/Lymphatic: Reports No Symptoms
Psych: Reports Calm
Physical Exam
Vital Signs
Vital Signs
Temp Pulse Resp BP Pulse Ox
100.7 F H 111 18 136/85 97
03/05/25 14:26 03/05/25 14:26 03/05/25 14:26 03/05/25 14:26 03/05/25 14:26
Physical Exam
General: Conversant, Fever and Chills
HEENT: NormoCephalic, Anicteric, Moist mucous membranes, [place] Conjunctivae and No Ptosis
Respiratory: Clear; No Wheezes, Rales or Rhonchi
Cardiac: S1/S2 and Regular Rhythm
Breast: Deferred by me
GI: Soft, Non Tender, Non Distended, Normal Bowel Sounds and No Hepatosplenomegaly
Rectal: Deferred by Provider
Genito-urinary: Deferred by me
Musculoskeletal: No Clubbing, No Cyanosis and Edema, Left Upper Extremity (Expanding erythema out of marked lines from yesterday 03/04/2025 and edema from left forearm above elbow and circumferential); No Edema, Right Upper Extremity, Edema, Left
Lower Extremity or Edema, Right Lower Extremity
Skin: Warm, Dry and Other (Expanding erythema out of marked lines from yesterday 03/04/2025 and edema from left forearm above elbow and circumferential); No Rash or Jaundice
Neuro: AO x 3 (Is forgetful of some medications), Nonfocal/grossly intact, Cranial Nerves Intact and No Sensory Deficits; No Slurred Speech, Facial Droop, Tremors or Sedated
Psych: Calm
Laboratory Results
-
03/05/25 14:38
03/05/25 14:38
Laboratory Results
Lactic Acid 1.0 mmol/L (0.7-2.0) 03/05/25 14:38
Total Bilirubin 1.6 mg/dl (0.2-1.3) H 03/05/25 14:38
AST 19 U/L (14-36) 03/05/25 14:38
ALT 16 U/L (0-35) 03/05/25 14:38
Alkaline Phosphatase 70 U/L (38-126) 03/05/25 14:38
Impression/Plan
-
Impression/plan:
Admit to [facility]
#Left upper extremity expanding cellulitis failure outpatient ABX
Given IV Ancef 2 g yesterday 03/04/2025 and Keflex 1000 mg twice daily x 14 days-she did not take this medication due to reported allergy GI cramping and will not take
- IV vancomycin
Follow CBC, BMP
Prednisone use?
#Patient on prednisone 20 mg daily unclear etiology
#Resolved left flank herpes zoster with chronic neuropathy August 07, 2024
Patient no longer on gabapentin
#A-fib�paroxysmal
-Continue Eliquis 5 mg twice daily, diltiazem 120 mg p.o. daily
#DM 2
Hx A1c November 2024 6.9%
- No current medications at home
#GERD
#HLD
#Hypothyroidism
- Patient is not taking thyroid medication
# Anxiety
- Continue lorazepam 0.5 mg daily as needed anxiety
#Chronic asthmatic bronchitis-no acute exacerbation
�last treated inpatient 03/02/2023
#Former smoker
#Arthritis
#UTIs/ Hx bladder suspension surgery-no current urinary symptoms
Known intra-abdominal aneurysm stable at 3.4 cm unchanged�had CT on 03/04/2025
Patient follows with Dr. Harrison at [facility], GI
- Prior lab tech Dr. Strickland who retired
DVT prophylaxis
Continue Eliquis 5 mg twice daily
Patient is full code states she wants everything done and wants to be stuck in the bed on a ventilator rather in the ground and wants that mentioned in her chart
[2025-03-05 18:00] VITALS: BP 140/83
[2025-03-05] MEDS: NSS 500 IV (18:35)
[2025-03-05] MEDS: VANCOCIN 530 MG IV (18:36)
[2025-03-05 21:45] VITALS: BP 147/88
--- NOTE | 2025-03-06 12:43 | CM ---
Call placed to Dr. Bryon Russell' office( [phone]), patient's PCP. Spoke to office nurse, Felix, made her aware that this patient was seen in our ED on 03/04 and 03/05. I made her aware that yesterday they recommended admission for IV
Antibiotics , however patient did not want to stay and signed out AMA. Felix stated that they received a call from her this morning and urged her to go to an ED. She spoke to Felix as well as Felix's Independent Living Advisor however still refused to go to the ED. They did
ask her if she was given a prescription for an oral antibiotic and she stated yes, but would not answer if she was taking it or had obtained it. They did make an appointment for her to come into the office on Sunday to see the physician, which she
agreed to do. They told her if her condition should worsen over the week-end she should seek medical care either by going to the ED or calling 911. Felix stated she did not tell them that she had left AMA. Felix requested the ED Physician notes from her
ED visit on 03/04 and 03/05 be faxed to her at [phone], which was done. I gave Rel my name and contact information should they need any additional information.
== END 2025-03-05 22:07 | disposition left against medical advice (07) ==
LOC: EMR 14:23
PROVIDERS: Emergency Medicine; EMERGENCY PHYSICIAN Emergency Medicine; FAMILY PHYSICIAN Family Medicine
DX: L03.114 Cellulitis of left upper limb (principal); K21.9 Gastro-esophageal reflux disease without esophagitis; E78.00 Pure hypercholesterolemia, unspecified; E03.9 Hypothyroidism, unspecified; F41.9 Anxiety disorder, unspecified; M19.90 Unspecified osteoarthritis, unspecified site; Z87.440 Personal history of urinary (tract) infections; Z87.891 Personal history of nicotine dependence; Z90.49 Acquired absence of other specified parts of digestive tract; Z90.710 Acquired absence of both cervix and uterus
CPT/HCPCS: 99283; 96365; 96366; 80053; 83605; 85025; 87040

== ENCOUNTER 2025-04-14 22:48 | Emergency (ER) | payer MEDICARE, SELFPAY ==
[2025-04-14 22:49] VITALS: BP 159/85
--- NOTE | 2025-04-15 00:39 | ED.MUSCINJ ---
HPI-Injury
General
Chief Complaint: Musculo-Skeletal Complaint
Source: patient
Exam Limitations: none
Time Seen by Provider: 04/15/25 00:33
History of Present Illness-Injury
Initial Injury comments:
75-year-old female presents to the emergency department with right hip pain. She states that it has been going on for at least a week. Denies any known injury. Denies fever, chills, nausea or vomiting. Reports no overuse. She is primary
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
Past History
Past History
ED Past Medical History: GERD, Hypercholesterolemia, Hypothyroidism, Psychiatric (Anxiety) and Other (Arthritis, UTI)
ED Past Surgical History: Appendectomy and Gynecological (Hysterectomy, bladder suspension)
Social History
Tobacco: Former smoker
Alcohol: None
Drug: None
Personal:
Living: with family
Family History
Family History: Other (Noncontributory)
Phy Exam
General Physical Exam
General Presentation: well appearing and no apparent distress
General Skin: warm and dry
General Habitus: normal
General Mental: alert
General Hydration: appears well hydrated
ENT Exam
ENT Exam: EOMI, pharynx normal, neck supple and normocephalic
Eye Exam
Eye Exam: PERRL, cornea clear and conjunctiva normal
Cardiovascular Exam
Cardiovascular Exam: regular rate/rhythm, no edema, no murmur and normal peripheral pulses
Pulmonary Exam
Pulmonary Exam: lungs clear, no respiratory distress, no rales, no crackles, no rhonchi, no stridor, no wheezing and no cough
Gastrointestinal Exam
Gastrointestinal Exam: normal bowel sounds, non tender, soft, no organomegaly, no pulsatile mass and non distended
Neurological Exam
Neurological Exam: alert, oriented x3, no motor deficits and speech normal
Musculoskeletal Exam
Musculoskeletal Exam: full ROM and no edema
Skin Exam
Skin Exam: normal color, warm/dry, no rash and no petechia
Psychiatric Exam
Psychiatric Exam: normal mood/affect
Injury Course
Orders/Labs/Results
Orders:
Orders
04/15/25 00:38
Hip, Right 2-3 Views [CR Hip - RT w/wo Pel 2-3 Vw*] Urgent
Comment:
Reason For Exam: atraumatic right hip
Include a pelvis x-ray?: Yes
*Critical Care Note
Total Time (30-74mins, 75-104mins- exclusive of procedures): Not Applicable
Update Note
Update Note:
Discussed x-ray findings with patient. She is ready to be discharged. I will prescribe her tramadol. Given her lengthy list of allergies, I went over this with her. She thinks she has had it before. She is willing to try a new prescription.
Patient being discharged in stable condition.
ED Attending Note
-
Portions of this chart may have been created with voice recognition software.� Occasional wrong word or��sound alike� substitutions may have occurred due to the inherent limitations of voice recognition software.
Discharge Plan
Departure
Patient Disposition: Home (Routine Discharge)
Date of Disposition: 04/15/25
Time of Disposition: 02:35
Patient with high blood pressure during this ER visit?: Yes
Discharge Problem:
Hip pain
Instructions: Muscle and Bone Pain (DC), BLOOD PRESSURE
Prescriptions:
New
tramadol 25 mg tablet
25 mg PO Q6H PRN (Reason: Pain) Qty: 7 0RF
No Action
Eliquis 5 mg Tablet
5 mg PO BID Qty: 60 0RF
prednisone 20 mg Tablet
20 mg PO QPM
diltiazem HCl 120 mg capsule,extended release 12 hr
120 mg PO QPM
cephalexin 500 mg capsule
1,000 mg PO BID 7 Days Qty: 28 0RF
lorazepam 0.5 mg Tablet
0.5 mg PO DAILYPRN PRN (Reason: anixety)
Referrals:
[facility] [Provider Group]
Bryon Reese MD [Family Provider, [facility]]
Activity Restrictions/Additional Instructions:
Thank You for choosing [facility].
It was a pleasure meeting you and taking part in your care. We hope for your continued healing and wellness.
Please read discharge instructions in their entirety. However, they are for general education and may not describe your exact diagnosis at discharge. Information on your ER visit and medical conditions were discussed with you along with appropriate
follow up information...
If indicated, please take your medications as instructed and indicated on discharge paperwork.
Please schedule a follow up appointment as directed. Call to schedule an appointment
Please return to the emergency department with ANY change in, persisting, or worsening of symptoms. If any of your symptoms do not improve, or persist, or become more severe within 6-12 hours, please return to the emergency department for further
care.
Please return to the emergency department if you develop a headache, neck pain/stiffness, fever greater than 100.4F, chest pain, shortness of breath, persistent nausea, vomiting, slurred speech, difficulty walking, numbness/tingling, weakness, signs
of infection or any other symptoms that are worrisome to you.
If you have any questions or concerns please do not hesitate to call the Hospital at .
Interventions
Interventions:
*Risk Screen - Suicide Last Done: 04/14/25 22:51
*General Assessment Last Done: 04/15/25 02:31
*Neglect/Abuse Screening Last Done: 04/14/25 22:51
*ED- Fall Risk Assessment Last Done: 04/15/25 02:31
*ED COVID-19 Vaccine History Last Done: 04/15/25 02:31
*Nursing Disposition Last Done: 04/15/25 03:06
ED-Musculoskeletal Assessment Last Done: 04/15/25 02:30
Discharge Date and Time
Discharge Date/Time: 04/15/25 03:07
Print Language: ICELANDIC
== END 2025-04-15 03:07 | disposition home or self-care (01) ==
LOC: EMR 22:48
PROVIDERS: EMERGENCY PHYSICIAN Student in an Organized Health Care Education/Training Program; FAMILY PHYSICIAN Family Medicine
DX: M25.551 Pain in right hip (principal); E03.9 Hypothyroidism, unspecified; E78.00 Pure hypercholesterolemia, unspecified; Z87.891 Personal history of nicotine dependence
CPT/HCPCS: 99283; 73502

== ENCOUNTER 2025-05-19 14:59 | Inpatient (IN) | payer MEDICARE, SELFPAY ==
[2025-05-19] VITALS (15 sets, daily range): BP systolic 136–196; BP diastolic 61–100; BMI 25.2
--- NOTE | 2025-05-19 10:08 | ED.GENMED ---
History of Present Illness
<Juan Ramon Carroll MD, Resident - Last Filed: 05/19/25 14:02>
General
Chief Complaint: Fever
Source: patient and family
Time Seen by Provider: 05/19/25 09:57
History of Present Illness
History of Present Illness:
This is a 75-year-old female with known history of abdominal aortic aneurysm, defibrillator, pelvic aneurysm, PVD, back pain, neck pain, difficulty with balance, chronic numbness and tingling in bilateral upper and lower extremities, presenting
today with complaints of not feeling well. She reports that she was fine 4 days ago when she started to notice that something is wrong and she has pain throughout her body. She admits to have cough but denies trouble breathing. Reports fevers but
no chills. Reports headache, chest pain, abdominal pain, joint pain, muscle pain, decreased appetite. Denies any diarrhea or constipation denies nausea or vomiting. Reports frequent urination and dysuria.
Past History
<Juan Ramon Carroll MD, Resident - Last Filed: 05/19/25 14:02>
Past History
ED Past Medical History: GERD, Hypercholesterolemia, Hypothyroidism, Psychiatric (Anxiety) and Other (Arthritis, UTI)
ED Past Surgical History: Appendectomy and Gynecological (Hysterectomy, bladder suspension)
Social History
Tobacco: Former smoker
Alcohol: None
Drug: None
Personal:
Living: with family
Family History
Family History: Other (Noncontributory)
Review of Systems
<Juan Ramon Carroll MD, Resident - Last Filed: 05/19/25 14:02>
Review of Systems
Constitutional: Reports fever and fatigue; Denies chills
EENT: Denies sore throat or runny nose
Respiratory: Reports cough; Denies trouble breathing
Cardiac: Reports chest pain; Denies diaphoresis or palpitations
ABD/GI: Reports abdominal pain; Denies nausea, vomiting, diarrhea, constipated, bloody stools, black stools or anorexia
: Reports dysuria and frequency; Denies flank pain or incontinence
Musculoskeletal: Reports joint pain and muscle stiffness
Skin: Denies itching
Neurological: Reports headache and numbness; Denies weakness
Hematologic/Lymphatic: Reports no symptoms
Psychiatric: Reports no symptoms
Phy Exam
<Juan Ramon Carroll MD, Resident - Last Filed: 05/19/25 14:02>
General Physical Exam
General Presentation: moderate distress
General age: appears stated age
General Skin: warm
General Habitus: frail
General Mental: alert
Cardiovascular Exam
Cardiovascular Exam: regular rate/rhythm and no murmur
Pulmonary Exam
Pulmonary Exam: lungs clear, no respiratory distress and chest non tender
Gastrointestinal Exam
Gastrointestinal Exam: soft and non distended
Neurological Exam
Neurological Exam: alert, oriented x3, no motor deficits and no sensory deficits
Musculoskeletal Exam
Musculoskeletal Exam: back pain
Sepsis
<Juan Ramon Carroll MD, Resident - Last Filed: 05/19/25 14:02>
Sepsis Screening
Sepsis Assessment: Sepsis
Sepsis Screen
Sepsis Screen: Sepsis
Date: 05/19/25
Time: 14:02
<Jasbir Cornelius MD - Last Filed: 05/20/25 08:10>
Sepsis Screen
Sepsis Screen: Sepsis
Date: 05/20/25
Time: 08:09
Course
<Juan Ramon Carroll MD, Resident - Last Filed: 05/19/25 14:02>
Orders/Labs/Results
Orders:
Orders
05/19/25 Breakfast
NPO
Allow oral meds: Yes
Allow clear liquids: No
05/19/25 09:53
Electrocardiogram (*1) Urgent
Reason for Study: Other
Other Reason for Exam: Possible Sepsis
EKG- Treatment ONCE
05/19/25 10:25
Straight cath- Treatment ONCE
CR Chest - 2 Views Urgent
Comment:
Reason For Exam: fever/cough
05/19/25 10:26
0.9% Sodium Chloride 250 ml [Nss] 250 ml IV BOLUS
Acetaminophen [Tylenol] 650 mg PO NOW STA
05/19/25 10:57
COVID-19 Antigen Urgent
Source: Nasal Swab
Urinalysis Reflex To Culture Urgent
Date Specimen was Collected: 05/19/25
Time Specimen was Collected: 10:20
Urine Microscopic Reflex Cult Urgent
INF RAPID [Influenza A+B Rapid Molecular] Urgent
ABEL Source: Nasal Swab
Specimen Description:
Urine Culture Urgent
ABEL Source: U
Specimen Description:
Date Specimen was Collected: 05/19/25
Time Specimen was Collected: 10:20
Comment: ADD ON
05/19/25 10:59
Complete Blood Count/With Diff Urgent
Comprehensive Metabolic Panel Urgent
Lactic Acid Q4H
Comment: ON ICE, CANCEL 2ND ORDER IF FIRST LACTIC ACID LEVEL <2
Lipase Urgent
Blood Culture Q20M
ABEL Source: Blood/Venous
Specimen Description:
Comment: Urgent from separate sites. If patient screens positive for possible sepsis
05/19/25 11:00
Blood Culture Q20M
ABEL Source: Blood/Venous
Specimen Description:
Comment: Urgent from separate sites. If patient screens positive for possible sepsis
05/19/25 13:52
Add On - Microbiology Urgent
Tests Added?: urine culture
05/19/25 13:59
0.9% Sodium Chloride 500 ml [Nss] 500 ml IV BOLUS
Azithromycin [Zithromax] 500 mg PO NOW STA
05/19/25 14:41
Admit/Transfer Patient As Directed
Co-Sign Provider:
Level of Care: Inpatient admission
Assign to:: Telemetry
Physician / Group: wiliam reyes
Diagnosis: sepsis
Reason for Telemetry: Other
Other Reason for Telemetry: sepsis
Date to Stop Telemetry: 05/21/25
Time to Stop Telemetry: 11:00
Reason for Hospitalization: sepsis
Expected length of stay greater than two midnights?: Yes
ELOS- Estimated Length of Stay in days: 3
I certify the patient meets the requirements for IP care: Yes
PRN Pain Medication Management As Directed
May give lesser potent ordered pain med per pt: Yes
preference::
Protocol:: Medication orders for pain may be administered in a
manner that supports deferring to patient preference
when the pt is:
- Requesting an ordered lesser potent pain medication.
Least to most potent pain medications are defined
as: acetaminophen < NSAID < tramadol < opioids
(morphine, oxycodone, hydromorphone).
- Requesting a lesser dose of the same medication IF
ORDERED.
- Requesting a less intrusive route of administration
if both routes are prescribed by the provider (PO <
IV).
05/19/25 14:42
Code Status As Directed
Resuscitation Status: Full Code
05/19/25 14:48
Add On- LAB Stat
Tests Added?: LIpase
05/19/25 14:52
Iohexol [Omnipaque] See Protocol PO NOW STA
05/19/25 14:53
CT Abd/pel (oral only)-DH Only Urgent
Comment:
Reason For Exam: Abdominal pain
05/19/25 21:50
0.9% Sodium Chloride 1000 ml [Nss] 1,000 ml IV 80 mls/hr
Acetaminophen [Tylenol/Feverall] 650 mg RECTAL Q4HPRN PRN
Acetaminophen [Tylenol] 650 mg PO Q4HPRN PRN
Dextrose 50%-Water [Dextrose 50% Syringe] 12.5 grams IV [id number] PRN
Enoxaparin Sodium [Lovenox] 40 mg SC QPM
Glucagon [GlucaGen] 1 mg IM PRN PRN
Insulin Aspart Corrective Low [Novolog Flexpen-Low Resistance] See Protocol SC AC
Lorazepam [Ativan] 0.5 mg PO BIDPRN PRN anixety
Prednisone [Deltasone] 20 mg PO QPM
05/19/25 21:50
Respiratory Culture/Gram Stain Routine
ABEL Source: Sputum
Specimen Description:
Comment: IF NOT OBTAINED IN ED
Activity As Directed
Activity Level: As Tolerated
Bedside Glucose Monitoring As Directed
Frequency: AC&HS
Additional Instructions:: Change to q6h if pt on TPN, tube feeding or not eating
Intake/ Output As Directed
Frequency: Per unit guidelines
Vital Signs As Directed
Frequency: Per unit guidelines
DX Deep Vein Thrombosis Video Routine
05/20/25 06:00
Glycohemoglobin (HgbA1c) IN AM
05/20/25 08:00
Diltiazem Extended Release [Cardizem Cd] 120 mg PO DAILY
05/21/25 11:00
DC Protocol for Telemetry ONCE
Abnormal Lab Results
05/19/25 05/19/25
10:57 10:59
MCHC 31.5 L g/dL
(33.0-37.0)
MPV 11.0 H fL
(7.4-10.4)
Abs Immat Gran (auto) 0.1 H 10^3/uL
(0-0.05)
Absolute Monos (auto) 0.7 H 10^3/uL
(0.1-0.6)
Immature Gran % 0.8 H %
(0-0.5)
Lymphocytes % 16.6 L %
(20.5-51.1)
Monocytes % 9.7 H %
(1.7-9.3)
Potassium 3.4 L mmol/L
(3.5-5.1)
Alkaline Phosphatase 127 H U/L
(38-126)
Ur Occult Blood Reflex 1+ A
(Negative)
05/19/25 10:59
05/19/25 10:59
Vital Signs
Initial and Last Documented VS:
Initial Vital Signs
Temp Pulse Resp BP Pulse Ox
102.1 F H 100 18 168/74 93
05/19/25 09:49 05/19/25 09:49 05/19/25 09:49 05/19/25 09:49 05/19/25 09:49
Last Documented Vital Signs
Temp Pulse Resp BP Pulse Ox
99.5 F 106 23 182/76 92
05/19/25 16:30 05/19/25 23:46 05/19/25 23:46 05/19/25 23:46 05/19/25 22:15
<Jasbir Cornelius MD - Last Filed: 05/20/25 08:10>
Orders/Labs/Results
Orders:
Orders
05/19/25 Breakfast
NPO
Allow oral meds: Yes
Allow clear liquids: No
05/19/25 09:53
Electrocardiogram (*1) Urgent
Reason for Study: Other
Other Reason for Exam: Possible Sepsis
EKG- Treatment ONCE
05/19/25 10:25
Straight cath- Treatment ONCE
CR Chest - 2 Views Urgent
Comment:
Reason For Exam: fever/cough
05/19/25 10:26
0.9% Sodium Chloride 250 ml [Nss] 250 ml IV BOLUS
Acetaminophen [Tylenol] 650 mg PO NOW STA
05/19/25 10:57
COVID-19 Antigen Urgent
Source: Nasal Swab
Urinalysis Reflex To Culture Urgent
Date Specimen was Collected: 05/19/25
Time Specimen was Collected: 10:20
Urine Microscopic Reflex Cult Urgent
INF RAPID [Influenza A+B Rapid Molecular] Urgent
ABEL Source: Nasal Swab
Specimen Description:
Urine Culture Urgent
ABEL Source: U
Specimen Description:
Date Specimen was Collected: 05/19/25
Time Specimen was Collected: 10:20
Comment: ADD ON
05/19/25 10:59
Complete Blood Count/With Diff Urgent
Comprehensive Metabolic Panel Urgent
Lactic Acid Q4H
Comment: ON ICE, CANCEL 2ND ORDER IF FIRST LACTIC ACID LEVEL <2
Lipase Urgent
Blood Culture Q20M
ABEL Source: Blood/Venous
Specimen Description:
Comment: Urgent from separate sites. If patient screens positive for possible sepsis
05/19/25 11:00
Blood Culture Q20M
ABEL Source: Blood/Venous
Specimen Description:
Comment: Urgent from separate sites. If patient screens positive for possible sepsis
05/19/25 13:52
Add On - Microbiology Urgent
Tests Added?: urine culture
05/19/25 13:59
0.9% Sodium Chloride 500 ml [Nss] 500 ml IV BOLUS
Azithromycin [Zithromax] 500 mg PO NOW STA
05/19/25 14:41
Admit/Transfer Patient As Directed
Co-Sign Provider:
Level of Care: Inpatient admission
Assign to:: Telemetry
Physician / Group: wiliam reyes
Diagnosis: sepsis
Reason for Telemetry: Other
Other Reason for Telemetry: sepsis
Date to Stop Telemetry: 05/21/25
Time to Stop Telemetry: 11:00
Reason for Hospitalization: sepsis
Expected length of stay greater than two midnights?: Yes
ELOS- Estimated Length of Stay in days: 3
I certify the patient meets the requirements for IP care: Yes
PRN Pain Medication Management As Directed
May give lesser potent ordered pain med per pt: Yes
preference::
Protocol:: Medication orders for pain may be administered in a
manner that supports deferring to patient preference
when the pt is:
- Requesting an ordered lesser potent pain medication.
Least to most potent pain medications are defined
as: acetaminophen < NSAID < tramadol < opioids
(morphine, oxycodone, hydromorphone).
- Requesting a lesser dose of the same medication IF
ORDERED.
- Requesting a less intrusive route of administration
if both routes are prescribed by the provider (PO <
IV).
05/19/25 14:42
Code Status As Directed
Resuscitation Status: Full Code
05/19/25 14:48
Add On- LAB Stat
Tests Added?: LIpase
05/19/25 14:52
Iohexol [Omnipaque] See Protocol PO NOW STA
05/19/25 14:53
CT Abd/pel (oral only)-DH Only Urgent
Comment:
Reason For Exam: Abdominal pain
05/19/25 21:50
0.9% Sodium Chloride 1000 ml [Nss] 1,000 ml IV 80 mls/hr
Acetaminophen [Tylenol/Feverall] 650 mg RECTAL Q4HPRN PRN
Acetaminophen [Tylenol] 650 mg PO Q4HPRN PRN
Dextrose 50%-Water [Dextrose 50% Syringe] 12.5 grams IV [id number] PRN
Enoxaparin Sodium [Lovenox] 40 mg SC QPM
Glucagon [GlucaGen] 1 mg IM PRN PRN
Insulin Aspart Corrective Low [Novolog Flexpen-Low Resistance] See Protocol SC AC
Lorazepam [Ativan] 0.5 mg PO BIDPRN PRN anixety
Prednisone [Deltasone] 20 mg PO QPM
05/19/25 21:50
Respiratory Culture/Gram Stain Routine
ABEL Source: Sputum
Specimen Description:
Comment: IF NOT OBTAINED IN ED
Activity As Directed
Activity Level: As Tolerated
Bedside Glucose Monitoring As Directed
Frequency: AC&HS
Additional Instructions:: Change to q6h if pt on TPN, tube feeding or not eating
Intake/ Output As Directed
Frequency: Per unit guidelines
Vital Signs As Directed
Frequency: Per unit guidelines
DX Deep Vein Thrombosis Video Routine
05/20/25 06:00
Glycohemoglobin (HgbA1c) IN AM
05/20/25 08:00
Diltiazem Extended Release [Cardizem Cd] 120 mg PO DAILY
05/21/25 11:00
DC Protocol for Telemetry ONCE
Abnormal Lab Results
05/19/25 05/19/25
10:57 10:59
MCHC 31.5 L g/dL
(33.0-37.0)
MPV 11.0 H fL
(7.4-10.4)
Abs Immat Gran (auto) 0.1 H 10^3/uL
(0-0.05)
Absolute Monos (auto) 0.7 H 10^3/uL
(0.1-0.6)
Immature Gran % 0.8 H %
(0-0.5)
Lymphocytes % 16.6 L %
(20.5-51.1)
Monocytes % 9.7 H %
(1.7-9.3)
Potassium 3.4 L mmol/L
(3.5-5.1)
Alkaline Phosphatase 127 H U/L
(38-126)
Ur Occult Blood Reflex 1+ A
(Negative)
05/19/25 10:59
05/19/25 10:59
Vital Signs
Initial and Last Documented VS:
Initial Vital Signs
Temp Pulse Resp BP Pulse Ox
102.1 F H 100 18 168/74 93
05/19/25 09:49 05/19/25 09:49 05/19/25 09:49 05/19/25 09:49 05/19/25 09:49
Last Documented Vital Signs
Temp Pulse Resp BP Pulse Ox
99.5 F 106 23 182/76 92
05/19/25 16:30 05/19/25 23:46 05/19/25 23:46 05/19/25 23:46 05/19/25 22:15
<Juan Ramon Carroll MD, Resident - Last Filed: 05/19/25 14:02>
MDM/Problems Addressed
Differential Diagnosis Includes:
Sepsis with unknown source vs COVID vs flu vs other infection
MDM/Problems Addressed:
Check CBC, CMP, blood culture, COVID/19, flu, lactic acid, EKG.
CBC benign. CMP with mild hypokalemia. Lactic acid normal
COVID and flu negative
IV normal saline bolus 250 mL and Tylenol 650 mg p.o.
She continues to have cough will get chest x-ray as well.
There is clinical evidence of significant dehydration. sepsis could be secondary to viral pneumonia or acute bronchitis
Blood cultures still pending.
Chest x-ray with lungs appear slightly hyperinflated.
Mild HYPOXIA; will supplemental O2 via nasal cannula to leave.
Given significant clinical dehydration, possible sepsis secondary to viral pneumonia, need for supplemental O2 due to hypoxia we will admit the patient for further treatment. Will give 500 mL IV bolus and azithromycin 500mg to cover atypical pna
<Juan Ramon Carroll MD, Resident - Last Filed: 05/19/25 14:02>
*Pulse Oximetry
SaO2: 93
Oxygen Mode of Delivery: Room air
Patient hypoxic: yes
*Critical Care Note
Total Time (30-74mins, 75-104mins- exclusive of procedures): Not Applicable
ED Attending Note
<Juan Ramon Carroll MD, Resident - Last Filed: 05/19/25 14:02>
-
Portions of this chart may have been created with voice recognition software.� Occasional wrong word or��sound alike� substitutions may have occurred due to the inherent limitations of voice recognition software.
<Jasbir Cornelius MD - Last Filed: 05/20/25 08:10>
ED Attending Note
Patient seen and examined by attending physician: Yes
ED Attending Note:
Patient presents to ED secondary to 4-day history of fever, chills, generalized body ache, nonproductive cough, nausea sensation, with decreased appetite. Denies vomiting or diarrhea. Denies chest pain. Denies headache. Denies neck pain. Denies
dizziness. Patient reports generalized weakness. Denies sick contact. Denies recent travel. Patient also reports painful urination sensation, which she has had in the past and diagnosed with a UTI. Denies sick contact. Denies recent change in
medications or diet.
Physical Exam
General: mild distress, not acutely ill. febrile
Head: nc/at. eomi
Neck: supple. no meningeal signs.
Heart: s1/s2 regular rate and rhythm
Lungs: mild respiratory distress. rhonchi bilaterally
Abdomen: normal bowel sounds. no distention. mild diffuse abdominal tenderness to palpation (chronic, per patient)
Neuro: alert and oriented x 3. no focal neurological deficits
Skin: no rash
Psychiatric: well kept. interactive and cooperative
Extremities: no edema. no calf tenderness.
History and exam concerning for sepsis, likely secondary to pneumonia versus UTI. Patient with clinical symptoms concerning for dehydration as well. As such, patient will be given Tylenol for fever control along with IV fluid administration.
Patient will require further treatment as inpatient.
Discharge Plan
Departure
Patient Disposition: Admit
Date of Disposition: 05/19/25
Time of Disposition: 14:01
Presentation/result/management discussed w/ accepting MD/DO: Hospitalist
Patient with high blood pressure during this ER visit?: Yes
Condition: Fair
Discharge Problem:
Sepsis, Fever
Interventions
Interventions:
*Risk Screen - Suicide Last Done: 05/19/25 09:49
*General Assessment Last Done: 05/19/25 10:00
*Neglect/Abuse Screening Last Done: 05/19/25 09:49
*ED- Fall Risk Assessment Last Done: 05/19/25 10:00
*ED COVID-19 Vaccine History Last Done: 05/19/25 10:00
*Nursing Disposition Last Done: 05/20/25 00:13
ED- Neurological Assessment Last Done: 05/19/25 10:00
ED-Skin Assessment Last Done: 05/19/25 10:00
Discharge Date and Time
Discharge Date/Time: 05/20/25 00:12
[2025-05-19] MEDS: TYLENOL 650 MG PO (11:08)
[2025-05-19] MEDS: NSS 250 IV (11:09)
[2025-05-19 11:17] LABS: Hematocrit 41.3 % (37.0-47.0); Hemoglobin 13.0 g/dL (12.0-16.0); Mean Corp Hgb Conc. 31.5 g/dL (33.0-37.0); Mean Corpuscular Volume 88.2 fL (81.0-99.0); Nucleated Red Blood Cells % 0 %; Platelet Count 163 10^3/uL (130-400); Red Cell Dist. Width 14.1 % (11.5-14.5)
[2025-05-19 11:18] LABS: Urine Character Clear (Clear)
[2025-05-19 11:25] LABS: Urine Red Blood Cell 0-2 /HPF (0-2); Urine Squamous Cell 0-2 /LPF (Few); Urine White Cell 0-2 /HPF (0-5)
[2025-05-19 11:34] LABS: ALT (SGPT) 17 U/L (0-35); AST (SGOT) 21 U/L (14-36); Albumin 4.3 g/dl (3.5-5.0); Alkaline Phosphatase 127 U/L (38-126); Blood Urea Nitrogen 15 mg/dl (7-17); Calcium 8.4 mg/dl (8.4-10.2); Carbon Dioxide 26 mmol/L (22-30); Chloride 102 mmol/L (98-107); Glucose 87 mg/dl (70-99); Potassium 3.4 mmol/L (3.5-5.1); Sodium 136 mmol/L (135-145); Total Protein 7.1 g/dl (6.3-8.2); eGFR > 60.00
[2025-05-19 11:47] LABS: COVID-19 Antigen Negative (Negative)
--- NOTE | 2025-05-19 14:05 | HPS.HSE ---
Family Physician
-
Family Physician: Bryon Reese
Chief Complaint
-
generalized body ache
abdominal pain assoicated with nausea
History of Present Illness
75-year-old female with known history of abdominal aortic aneurysm, defibrillator, pelvic aneurysm, PVD, back pain, neck pain, difficulty with balance, chronic numbness and tingling in bilateral upper and lower extremities, presenting today with
complaints of not feeling well for past few days. patient stated cough with yellowish sputum. fever, chills. denied chest pain, sob. stated abdominal tenderness and nausea. denied vomiting or diarrha. denied dysuria or hematuria.
UA< COVID and chest x ray negative.
patient recived a dose of tylenol, zithromax, normal saline in ER. admitting for further managment.
Medical History
Past Medical History
Past Medical History: Reports Other
Additional Past Medical History:
Hyperlipidemia, IBS
Peripheral vascular disease
GERD
Hypothyroidism
Abdominal aortic aneurysm
Anxiety
Hypertriglyceridemia
UTI
Mesenteric artery stenosis
Abdominal aortic atherosclerosis
Hypertension
CKD stage II
A-fib
Type 2 diabetes
fibroids
Past Surgical History: Reports Other
Additional Past Surgical History:
Appendectomy
Hysterectomy
Bilateral oophorectomy
Operation for urinary incontinence
Cystocele repair
Social History
Tobacco: Non-smoker
Alcohol: None
Drug: None
Personal: Single
Living: With Family
Family History
Family History: Not pertinent
Allergies / Home Medications
Allergies reflects when Allergies were last updated in [facility].
Home Medications with original date entered in [facility]
Allergy/Medication List:
Allergies
Allergy/AdvReac Type Severity Reaction Status Date / Time
adhesive tape (Adhesive Tape) Allergy REDNESS Verified 05/19/25 09:49
alprazolam Allergy LEGAL ENTITY CONTROLLER Verified 05/19/25 10:53
effects -
confusion
codeine Allergy LEGAL ENTITY CONTROLLER Verified 05/19/25 10:53
effects -
confusion
cyanocobalamin (From Vitamin Allergy 'gave me a Verified 05/19/25 11:02
B-12) stroke'
while b12
deficient
ezetimibe Allergy Unknown- Verified 05/19/25 10:53
patient
confirmed
gadobutrol (From Gadavist) Allergy rash many Verified 05/19/25 10:53
years ago-
but
patient
has
tolerated
it since
ibuprofen (Ibuprofen) Allergy STOMACH Verified 05/19/25 09:49
PAINS
Iodinated Contrast Media Allergy rash many Verified 05/19/25 10:53
(Iodinated Contrast Media - years ago-
IV Dye) but
patient
has
tolerated
it since
metoclopramide Allergy 'long time Verified 05/19/25 11:02
ago, don't
know'
nabumetone Allergy TREMORS Verified 05/19/25 09:49
NSAIDS (Non-Steroidal Allergy Unknown Verified 05/19/25 09:49
Anti-Inflamma
oxycodone Allergy LEGAL ENTITY CONTROLLER Verified 05/19/25 11:02
effects,
confusion
pentoxifylline Allergy LEGAL ENTITY CONTROLLER Verified 05/19/25 11:02
effects-
confusion
propoxyphene Allergy LEGAL ENTITY CONTROLLER Verified 05/19/25 11:02
effects-
confusion
simvastatin Allergy 'bad, a Verified 05/19/25 11:02
long time
ago'
Sulfa (Sulfonamide Allergy 'long time Verified 05/19/25 11:02
Antibiotics) ago, I
don't know'
cobamamide Allergy 'gave me a Uncoded 05/19/25 11:02
stroke'
while b12
deficient
novacaine Allergy one-sided Uncoded 05/19/25 11:02
numbness
Home Medications
apixaban 5 mg tablet (Eliquis) 5 mg PO BID #60 tabs 04/14/23
prednisone 20 mg tablet 20 mg PO QPM 07/29/24
lorazepam 0.5 mg tablet 0.5 mg PO BIDPRN PRN anixety 03/05/25
diltiazem HCl 120 mg capsule,24 hr,extended release 120 mg PO DAILY 05/19/25
Review of Systems
-
Constitutional: Reports Fever and Fatigue
EENT: Reports No Symptoms
Respiratory: Reports Cough
Cardiac: Reports No Symptoms
Abdomen/GI: Reports Abdominal Pain and Nausea
: Reports No Symptoms
Musculoskeletal: Reports No Symptoms
Skin: Reports No Symptoms
Neurological: Reports No Symptoms
Endocrine: Reports No Symptoms
Hematologic/Lymphatic: Reports No Symptoms
Psych: Reports No Symptoms
Physical Exam
Vital Signs
Vital Signs
Temp Pulse Resp BP Pulse Ox
100.7 F H 91 22 163/61 91
05/19/25 13:00 05/19/25 13:45 05/19/25 13:45 05/19/25 12:00 05/19/25 13:45
Physical Exam
General: Well Developed, Well Nourished and No Apparent Distress
HEENT: NormoCephalic, Moist mucous membranes and Atraumatic
Respiratory: Clear
Cardiac: S1/S2 and Regular Rhythm; No Murmur or Rub
GI: Soft, Non Tender, Non Distended, Normal Bowel Sounds and Tender; No Organomegaly
Rectal: Deferred by Provider
Musculoskeletal: No Clubbing, No Cyanosis and No Edema
Skin: No Rash
Neuro: AO x 3 and Nonfocal/grossly intact
Psych: Calm
Laboratory Results
-
07/08/25 10:59
05/19/25 10:59
Laboratory Results
Lactic Acid 1.2 mmol/L (0.7-2.0) 05/19/25 10:59
Total Bilirubin 1.3 mg/dl (0.2-1.3) 05/19/25 10:59
AST 21 U/L (14-36) 05/19/25 10:59
ALT 17 U/L (0-35) 05/19/25 10:59
Alkaline Phosphatase 127 U/L (38-126) H 05/19/25 10:59
Data Reviewed
-
Diagnostic Radiology: Report Reviewed by me
Lab Data: Labs Reviewed by me
Impression/Plan
-
#sepsis unclear cause
-UA negative, COVID negative
-temp 100.7,tachycardia
-chest x ray with the impression of Lungs appear slightly hypoinflated.On the lateral view, discoid atelectasis projecting over the posterior lower lungs.Cardiomegaly with no evidence for pulmonary edema pattern.
-blood culture sent from ER
-received a dose of zithro in ER
-admitting for further management.
-CT with pneumonia giving iv ceftriaxone and doxy
#abdominal pain associated with nausea
-will obtain CT abdomen pelvis
-Lipase
-hold eliquis until CT abdomen pelvis resulted
#hypokalemia
-k 3.4
-BMP in am
#Paroxysmal atrial fibrillation -hold Eliquis
- diltiazem continued
-EKG sinus tachycardia
#DM2 without hyperglycemia -does not appear to be on medications at home. Monitor for now.
-low insulin sliding scale.
#Anxiety disorder
-lorazepam
#DVT prophylaxis
-scd
#Full code
[2025-05-19] MEDS: NSS 500 IV (14:09)
[2025-05-19] MEDS: ZITHROMAX 500 MG PO (14:11)
--- NOTE | 2025-05-19 14:47 | W.PN.UPDATE ---
Update Note
Progress Note Update
This note serves as an addendum to the H&P by rn case manager hospice ROXANNA
Katarina FLORA
HPI
75F HX A Fib, chr Eliquis, diet control DM, Hypothyroid, HX abdominal aortic aneurysm,, pelvic aneurysm, PVD, seen at ER:
- not feeling well
- she was fine 4 days ago when she started to notice that something is wrong and she has pain throughout her body. - cough but denies trouble breathing.
- fevers but no chills
- headache, chest pain, abdominal pain, joint pain, muscle pain, decreased appetite.
- any diarrhea or constipation denies nausea or vomiting.
- frequent urination and dysuria.
PHX
Relevant VS: Tmax 102.1 BP 160/60 HR 90 POx low 90s
PE
Gen: drowzy mild distress,
HEENT: anictric
Neck: supple
Lungs: CTA
Cor: RRR S12 S2
Abdomen: mild diffuse abdominal tenderness to palpation
CLAIM TECHNICIAN: grossly non focal
Relevant Data
WCC 7.4
K 3.4
Unremarkable LFTs and TB
NEG UA
NEG Covid
BCx sent
CXR
Lungs appear slightly hypoinflated.
On the lateral view, discoid atelectasis projecting over the posterior lower lungs.
CT Abd/pel (oral only)-DH Only
1. Mild bilateral lower lobe pneumonia.
2. Saccular infrarenal abdominal aortic aneurysm (3.0 cm diameter).
3. Very severe calcific atherosclerotic plaque throughout the abdominal aorta.
4. Mild chronic bilateral renal disease.
5. Previous DONNIE-BSO.
6. Severe lower lumbar discogenic degenerative disease and facet joint arthrosis.
7. Acute nondisplaced sacral insufficiency fractures.
Last hospitalist admission:
ASSESSMENT & PLAN
Pending Rx reconciliation
Hi grade Fever , Weak , Myalgia ?
Severe abdominal pain - unremarkable WCC, LFts
- HD stable
- NEG Covid, NEG UA, NEG CXR
- lipase
- Urgent CT AP w/wo
- NPO except ice chips and IV NS
Saccular infrarenal abdominal aortic aneurysm (3.0 cm diameter).
HX HX abdominal aortic aneurysm, pelvic aneurysm,
- no active blood leaking
Mild bilateral LL PNA
- IV ABx
Paroxysmal AF
HX AICD
- Hold Eliquis till CT AP reports is avilable .
DM2 without hyperglycemia
Last HGb A1c in our system was from November, 6.9%.
- does not appear to be on medications at home.
Hypothyroidism
- Low ISS
GERD
Hyperlipidemia
Anxiety disorder
DVT Px: SCD
Full code
IP TLM
[2025-05-19 15:36] LABS: Lipase 92 U/L (23-300)
[2025-05-19] MEDS: OMNIPAQUE 50 ML PO (15:37)
--- NOTE | 2025-05-19 16:10 | CM ---
Addendum entered by Peri Villasenor 05/19/25 17:16:
Discussed with pt that her son cannot stay in the hospital with her, Asked if her daughter could pick him up and she stated that her daughter is sick and lives in [place] and cannot come to get him. Pt states she will leave if her son cannot stay.
Discussed with Dr Cotton, waiting for CT scan to be completed before pt will be admitted. He is aware that pt said she will leave if son cannot stay.
Original Note:
CM reviewed chart and met with pt bedside in ED. Lives in 2 story home, [address], son lives with her. Per pt, her currently at SNF in [place].
Independent in ADLs, personal care and ambulation. Uses Rolling walker for ambulation, also has SPC.
No hx VN or SNF.
Attempted to discuss that pt's son cannot stay with her in the hospital but she kept changing the subject. She did mention a daughter but I could not redirect the conversation to ask if her daughter could pick him up.
I notified NINO Guzmán and Nursing Motion Graphics Artist Yandel that pt states she has no one to pick him up.
[2025-05-19] MEDS: ROCEPHIN 1000 MG IV (19:51)
[2025-05-19] MEDS: STERILE WATER FOR INJECTION 10 ML IV (19:51)
[2025-05-19] MEDS: VIBRAMYCIN 100 MG PO (19:51)
[2025-05-19] MEDS: FLUSH (NSS) 1 FLUSH IV (19:52)
--- NOTE | 2025-05-19 20:36 | W.PN.UPDATE ---
Update Note
Progress Note Update
~1950 Pt on the phone with the police when this SEAFOOD CLERK walked in.- they offered options to help with temporary placement of her son- she declined.
Discussed CT Abd/pel results with pt.
Impression
1. Mild bilateral lower lobe pneumonia.
2. Saccular infrarenal abdominal aortic aneurysm (3.0 cm diameter).
3. Very severe calcific atherosclerotic plaque throughout the abdominal aorta.
4. Mild chronic bilateral renal disease.
5. Previous DONNIE-BSO.
6. Severe lower lumbar discogenic degenerative disease and facet joint arthrosis.
7. Acute nondisplaced sacral insufficiency fractures.
She verbalized understanding- Discussed that she is on IV and PO abx for the PNA. She is currently on 2L nasal cannula 94-95% with coarse lung sounds throughout with a moist nonproductive cough. I reiterated that she needs to find someone to care
for her son while she is admitted here from a liability stand point. Nursing art objects supervisor aware.
~2350 pt wanted to leave AMA- risks discussed. she ordered a lyft to take her home then stated she will call an ambulance to take her [place]. Pt ambulated to the wheelchair with staff assistance. refusing to sign AMA form because 'you didn't
provide medical advice- you were just being rude about the situation and i'm tired of it' Emotional support provided again. Reiterated it would be in her best interest to followup with [place]. NINO Stewart helping pt collect her belongs. Nursing
art objects supervisor aware.
[2025-05-19] MEDS: DELTASONE 20 MG PO (22:11)
[2025-05-19 22:14] LABS: Glucose - Point of Care 87 mg/dl (70-99)
[2025-05-19] MEDS: NSS 1000 IV (22:15)
--- NOTE | 2025-05-20 00:12 | PTCARENOTE ---
Addendum entered by Pat Sunshine RN 05/20/25 00:13:
all IVs taken out prior to leaving.
Original Note:
pt left ama, refused to sign form. RABIA almanzar at the bedside to discuss risk factors. pt ordered lyft and got into ride safely.
[2025-05-21 10:34] LABS: Glycohemoglobin (HgbA1c) 6.8 % (4.0-5.6)
== END 2025-05-20 00:13 | disposition left against medical advice (07) | DRG 871 ==
LOC: ED 14:59
PROVIDERS: Student in an Organized Health Care Education/Training Program; ADMITTING PHYSICIAN Internal Medicine; EMERGENCY PHYSICIAN Emergency Medicine; FAMILY PHYSICIAN Family Medicine
DX: A41.9 Sepsis, unspecified organism (principal); J18.9 Pneumonia, unspecified organism; J98.11 Atelectasis; Z87.891 Personal history of nicotine dependence; Z11.52 Encounter for screening for COVID-19; I48.0 Paroxysmal atrial fibrillation; N18.2 Chronic kidney disease, stage 2 (mild); E11.22 Type 2 diabetes mellitus with diabetic chronic kidney disease; E11.51 Type 2 diabetes mellitus with diabetic peripheral angiopathy without gangrene; E03.9 Hypothyroidism, unspecified; K21.9 Gastro-esophageal reflux disease without esophagitis; F41.9 Anxiety disorder, unspecified
CPT/HCPCS: 51701; 71046; 74176; 80053; 81003; 81015; 82962; 83036; 83605; 83690; 85025; 87040; 87086; 87502; 87811; 93005; 96360; 99285